=== PATIENT | female | born 1945 | race Asian ===

== ENCOUNTER 2017-11-17 11:20 | Inpatient (IN) | payer MEDICARE, BC ==
[~2017-11-17] VITALS: Ht 152.4 cm; Wt 45.4 kg
[2017-11-17] MEDS ORDERED: NORCO 5-325 TA1 EACH ORAL (11:44)
[2017-11-17 11:46] VITALS: BP 120/49
[2017-11-17] MEDS ORDERED: Morphine Sulfate 4mg/ml Inj IVP ONE (12:30)
[2017-11-17 12:37] LABS: ANION GAP 11 mmol/L (5-15); BLOOD UREA NITROGEN 17 mg/dL (7-18); CALCIUM 9.4 MG/DL (8.5-10.1); CARBON DIOXIDE 26 MMOL/L (21-32); CHLORIDE 106 MMOL/L (98-107); CREATININE 0.8 MG/DL (0.55-1.30); POTASSIUM 3.9 MMOL/L (3.5-5.1); SODIUM 143 MMOL/L (136-145)
[2017-11-17 12:39] LABS: HEMATOCRIT 42.4 % (37.0-47.0); HEMOGLOBIN 13.8 G/DL (12.0-16.0); MEAN CORPUSCULAR VOLUME 95 FL (80-99); PLATELET COUNT 189 K/UL (150-450); RED BLOOD COUNT 4.48 M/UL (4.20-5.40); RED CELL DISTRIBUTION WIDTH 12.3 % (11.6-14.8); WHITE BLOOD COUNT 17.2 K/UL (4.8-10.8)
[2017-11-17 12:49] LABS: ALANINE AMINOTRANSFERASE 397 U/L (12-78); ALBUMIN 3.4 G/DL (3.4-5.0); ALBUMIN/GLOBULIN RATIO 0.9 (1.0-2.7); ALKALINE PHOSPHATASE 223 U/L (46-116); ASPARTATE AMINO TRANSFERASE 610 U/L (15-37); BILIRUBIN,TOTAL 2.7 MG/DL (0.2-1.0)
[2017-11-17 12:50] LABS: BILIRUBIN,DIRECT 1.7 MG/DL (0.0-0.3)
[2017-11-17 13:11] VITALS: BP 112/42
--- NOTE | 2017-11-17 13:33 | Emergency Room Report ---
History of Present Illness General Chief Complaint: Abdominal Pain Source: Patient Present Illness HPI Patient presents with complaints of severe epigastric abdominal pain Some radiation towards the back patient had a cholecystectomy over 6 years ago Since then she has had repeat episodes of abdominal pain requiring ERCP This pain started 2 days ago increased nausea vomiting Denies any diarrhea 8/10 pain sharp Denies any fall or trauma Denies any fevers Allergies: Coded Allergies: No Known Allergies (Verified Allergy, Mild, 02/27/08) Patient History Past Medical History: see triage record Pertinent Family History: none Reviewed Nursing Documentation: PMH: Agreed, PSxH: Agreed Nursing Documentation-PMH Past Medical History: No History, Except For Review of Systems All Other Systems: negative except mentioned in HPI Physical Exam Vital Signs Date Time Temp Pulse Resp B/P (MAP) Pulse Ox O2 Delivery O2 Flow Rate FiO2 11/17/17 11:36 97.9 63 24 147/81 96 Room Air 11/17/17 11:46 2.0 Sp02 EP Interpretation: reviewed, normal General Appearance: mild distress - patient appears uncomfortable Head: normocephalic, atraumatic Eyes: bilateral eye PERRL, bilateral eye EOMI ENT: hearing grossly normal, normal pharynx, TMs + canals normal, uvula midline Neck: full range of motion, supple, no meningismus, no bony tend Respiratory: lungs clear, normal breath sounds, no rhonchi, no respiratory distress, no retraction, no accessory muscle use Cardiovascular #1: normal peripheral pulses, regular rate, rhythm, no edema, no gallop, no JVD, no murmur Gastrointestinal: normal bowel sounds, soft, no mass, no organomegaly, non- distended, no guarding, no hernia, no pulsatile mass, no rebound, tenderness - epigastric region Genitourinary: no CVA tenderness Musculoskeletal: normal inspection Neurologic: oriented x3, responsive, adoption worker III-XII nml as tested, motor strength/ tone normal, sensory intact Psychiatric: mood/affect normal Skin: normal color, no rash, warm/dry, palpation normal Lymphatic: normal inspection, no adenopathy Medical Decision Making Diagnostic Impression: Primary Impression: Abdominal pain Additional Impression: Hyperbilirubinemia ER Course With the history exam and presentation, multiple differentials considered, including but not limited to appendicitis, gastritis, cholecystitis, diverticulitis Patient's blood work reveals elevated total bilirubin elevated liver function test patient again appears to have likely obstructive pathology Further hydration and pain medicine as provided Patient's physician/GI specialist is aware and patient admitted for further care Labs Test 11/17/17 12:15 White Blood Count 17.2 K/UL (4.8-10.8) Red Blood Count 4.48 M/UL (4.20-5.40) Hemoglobin 13.8 G/DL (12.0-16.0) Hematocrit 42.4 % (37.0-47.0) Mean Corpuscular Volume 95 FL (80-99) Mean Corpuscular Hemoglobin 30.8 PG (27.0-31.0) Mean Corpuscular Hemoglobin Concent 32.5 G/DL (32.0-36.0) Red Cell Distribution Width 12.3 % (11.6-14.8) Platelet Count 189 K/UL (150-450) Mean Platelet Volume 9.5 FL (6.5-10.1) Neutrophils (%) (Auto) % (45.0-75.0) Lymphocytes (%) (Auto) % (20.0-45.0) Monocytes (%) (Auto) % (1.0-10.0) Eosinophils (%) (Auto) % (0.0-3.0) Basophils (%) (Auto) % (0.0-2.0) Differential Total Cells Counted 100 Neutrophils % (Manual) 93 % (45-75) Lymphocytes % (Manual) 4 % (20-45) Monocytes % (Manual) 2 % (1-10) Eosinophils % (Manual) 0 % (0-3) Basophils % (Manual) 0 % (0-2) Band Neutrophils 1 % (0-8) Platelet Estimate Adequate Platelet Morphology Normal Red Blood Cell Morphology Normal Sodium Level 143 MMOL/L (136-145) Potassium Level 3.9 MMOL/L (3.5-5.1) Chloride Level 106 MMOL/L (98-107) Carbon Dioxide Level 26 MMOL/L (21-32) Anion Gap 11 mmol/L (5-15) Blood Urea Nitrogen 17 mg/dL (7-18) Creatinine 0.8 MG/DL (0.55-1.30) Estimat Glomerular Filtration Rate mL/min (>60) Glucose Level 131 MG/DL (74-106) Calcium Level 9.4 MG/DL (8.5-10.1) Total Bilirubin 2.7 MG/DL (0.2-1.0) Direct Bilirubin 1.7 MG/DL (0.0-0.3) Aspartate Amino Transf (AST/SGOT) 610 U/L (15-37) Alanine Aminotransferase (ALT/SGPT) 397 U/L (12-78) Alkaline Phosphatase 223 U/L (46-116) Total Protein 7.4 G/DL (6.4-8.2) Albumin 3.4 G/DL (3.4-5.0) Globulin 4.0 g/dL Albumin/Globulin Ratio 0.9 (1.0-2.7) Lipase 81 U/L (73-393) Rhythm Strip Diag. Results EP Interpretation: yes Rate: 77 Rhythm: NSR, no PVC's, no ectopy CT/MRI/US Diagnostic Results CT/MRI/US Diagnostic Results : Impression abd mri:IMPRESSION: Choledocholithiasis with innumerable stones within the CBD and a moderate intrahepatic and CBD dilatation up to 16 mm. Status post cholecystectomy. Parapelvic renal cysts Breathing motion artifacts. Last Vital Signs Date Time Temp Pulse Resp B/P (MAP) Pulse Ox O2 Delivery O2 Flow Rate FiO2 11/17/17 13:11 97.8 58 12 112/42 98 Nasal Cannula 2.0 Status: improved Disposition: ADMITTED INPATIENT Condition: Serious Referrals: SHAWN JORDAN (PCP) LIZETH JIMENEZ D.O. Nov 17, 2017 13:33
[2017-11-17] MEDS ORDERED: Morphine Sulfate 2mg/ml Inj IVP PRN (14:00)
[2017-11-17] MEDS ORDERED: Miralax 17gm pkt ORAL PRN (14:00)
[2017-11-17] MEDS ORDERED: Mylanta II UD 30ml ORAL PRN (14:00)
[2017-11-17] MEDS ORDERED: Nitroglycerin Subl 0.4mg tab SL PRN (14:00)
--- NOTE | 2017-11-17 15:07 | GI Initial Consult Note ---
Eusebia Jasso NRizwanPRizwan 11/17/17 1507: History of Present Illness General Date patient seen: Nov 17, 2017 Time patient seen: 14:54 Reason for Hospitalization: Abdominal Pain Referring physician: TATYANA PERES Reason for Consultation: ABDOMINAL PAIN Present Illness HPI Patient presents with complaints of severe epigastric abdominal pain Some radiation towards the back patient had a cholecystectomy over 6 years ago Since then she has had repeat episodes of abdominal pain requiring ERCP This pain started 2 days ago increased nausea vomiting Denies any diarrhea 8/10 pain sharp Denies any fall or trauma Denies any fevers GI consulted for abdominal pain. Pt known to Dr. Jordan with history of biliary obstruction/cholestatic disease requiring ECRP x4 back in 2012. She presents today with severe abdominal pain with occasional radiation to the back. Labs reviewed shows leukocytosis and abnormal LFTs. Pt scheduled for MRCP, pending admission to the floor. Unknown history of endoscopy / colonoscopies. Home Meds Reported Medications Hydrocodone Bit/Acetaminophen 5-325* (NORCO 5-325*) 1 Each Tablet, 1 TAB ORAL Q6H Y for For Pain, #10 TAB 0 Refills 11/17/17 Med list reviewed/reconciled: Yes Allergies: Coded Allergies: No Known Allergies (Verified Allergy, Mild, 02/27/08) Patient History PMH Narrative Past Medical History: see triage record Pertinent Family History: none Reviewed Nursing Documentation: PMH: Agreed, PSxH: Agreed Nursing Documentation-PMH Past Medical History: cholestatic disease, s/p ERCP x4 in 2012. Social History: Denies: smoking, alcohol use, drug use, other Review of Systems All Other Systems: negative except mentioned in HPI Physical Exam Vital Signs Date Time Temp Pulse Resp B/P (MAP) Pulse Ox O2 Delivery O2 Flow Rate FiO2 11/17/17 11:36 97.9 63 24 147/81 96 Room Air 11/17/17 11:46 2.0 Sp02 EP Interpretation: reviewed, normal Labs Laboratory Tests Test 11/17/17 12:15 White Blood Count 17.2 K/UL (4.8-10.8) H Red Blood Count 4.48 M/UL (4.20-5.40) Hemoglobin 13.8 G/DL (12.0-16.0) Hematocrit 42.4 % (37.0-47.0) Mean Corpuscular Volume 95 FL (80-99) Mean Corpuscular Hemoglobin 30.8 PG (27.0-31.0) Mean Corpuscular Hemoglobin Concent 32.5 G/DL (32.0-36.0) Red Cell Distribution Width 12.3 % (11.6-14.8) Platelet Count 189 K/UL (150-450) Mean Platelet Volume 9.5 FL (6.5-10.1) Neutrophils (%) (Auto) % (45.0-75.0) Lymphocytes (%) (Auto) % (20.0-45.0) Monocytes (%) (Auto) % (1.0-10.0) Eosinophils (%) (Auto) % (0.0-3.0) Basophils (%) (Auto) % (0.0-2.0) Differential Total Cells Counted 100 Neutrophils % (Manual) 93 % (45-75) H Lymphocytes % (Manual) 4 % (20-45) L Monocytes % (Manual) 2 % (1-10) Eosinophils % (Manual) 0 % (0-3) Basophils % (Manual) 0 % (0-2) Band Neutrophils 1 % (0-8) Platelet Estimate Adequate Platelet Morphology Normal Red Blood Cell Morphology Normal Sodium Level 143 MMOL/L (136-145) Potassium Level 3.9 MMOL/L (3.5-5.1) Chloride Level 106 MMOL/L (98-107) Carbon Dioxide Level 26 MMOL/L (21-32) Anion Gap 11 mmol/L (5-15) Blood Urea Nitrogen 17 mg/dL (7-18) Creatinine 0.8 MG/DL (0.55-1.30) Estimat Glomerular Filtration Rate mL/min (>60) Glucose Level 131 MG/DL (74-106) H Calcium Level 9.4 MG/DL (8.5-10.1) Total Bilirubin 2.7 MG/DL (0.2-1.0) H Direct Bilirubin 1.7 MG/DL (0.0-0.3) H Aspartate Amino Transf (AST/SGOT) 610 U/L (15-37) H Alanine Aminotransferase (ALT/SGPT) 397 U/L (12-78) H Alkaline Phosphatase 223 U/L (46-116) H Total Protein 7.4 G/DL (6.4-8.2) Albumin 3.4 G/DL (3.4-5.0) Globulin 4.0 g/dL Albumin/Globulin Ratio 0.9 (1.0-2.7) L Lipase 81 U/L (73-393) General Appearance: well appearing, no apparent distress, alert Head: normocephalic EENT: PERRL/EOMI, normal ENT inspection Neck: supple Respiratory: normal breath sounds, no respiratory distress Cardiovascular: normal rate Gastrointestinal: normal inspection, non tender, soft, normal bowel sounds, non -distended Rectal: deferred Genitourinary: no CVA tenderness Musculoskeletal: normal inspection, back normal Neurologic: normal inspection, alert, oriented x3, responsive Psychiatric: normal inspection, judgement/insight normal, memory normal Skin: normal inspection, normal color, no rash, warm/dry, palpation normal, well hydrated Lymphatic: normal inspection, no adenopathy Current Medications Current Medications Medications (Trade) Dose Ordered Sig/Gordon Route PRN Reason Start Time Stop Time Status Last Admin Dose Admin Acetaminophen (Tylenol) 650 mg Q4H PRN ORAL fever 11/17/17 14:00 12/17/17 13:59 Al Hydroxide/Mg Hydroxide (Mylanta II) 30 ml Q6H PRN ORAL dyspepsia 11/17/17 14:00 12/17/17 13:59 Ceftriaxone Sodium 1 gm/ Dextrose 55 ml @ 110 mls/hr Q24H IVPB 11/17/17 14:45 11/24/17 14:44 UNV Dextrose (Dextrose 50%) STAT PRN IV Hypoglycemia 11/17/17 14:00 12/17/17 13:59 Dextrose/Sodium Chloride 1,000 ml @ 75 mls/hr [id number] IV 11/17/17 15:00 12/17/17 14:59 Diphenhydramine HCl (Benadryl) 25 mg Q6H PRN ORAL Itching/Pruritis 11/17/17 14:00 12/17/17 13:59 Heparin Sodium (Porcine) (Heparin 5000 units/ml) 5,000 units EVERY 12 HOURS SUBQ 11/17/17 21:00 12/17/17 20:59 Metronidazole 100 ml @ 100 mls/hr Q8HR IVPB 11/17/17 22:00 11/24/17 21:59 UNV Morphine Sulfate (Morphine Sulfate) 2 mg EVERY 4 HOURS PRN IVP severe Pain (Pain Scale 7-10) 11/17/17 14:00 11/24/17 13:59 Nitroglycerin (Ntg) 0.4 mg Q5M X 3 DOSES PRN SL Prn Chest Pain 11/17/17 14:00 12/17/17 13:59 Ondansetron HCl (Zofran) 4 mg Q6H PRN IVP Nausea & Vomiting 11/17/17 14:00 12/17/17 13:59 Pantoprazole (Protonix) 40 mg DAILY IVP 11/18/17 09:00 12/18/17 08:59 Polyethylene Glycol (Miralax) 17 gm HSPRN PRN ORAL Constipation 11/17/17 14:00 12/17/17 13:59 Temazepam (Restoril) 15 mg HSPRN PRN ORAL Insomnia 11/17/17 14:00 11/24/17 13:59 GI: Plan Problems: (1) Biliary obstruction (2) Abdominal pain (3) Hyperbilirubinemia Plan elevated LFTS >> suggestive of biliary obstruction vs cholestatic disease MRCP today. ERCP scheduled for Monday11/20/16. - maintain NPO + IVFs - add ceftriaxone + flagyl pain mgmt ppi fu labs, LFTs Discussed with Dr. Jordan. Thank you for this patient referral, we will follow. SHAWN JORDAN 11/20/17 0636: History of Present Illness General Reason for Hospitalization: Abdominal Pain Present Illness Home Meds Reported Medications Hydrocodone Bit/Acetaminophen 5-325* (NORCO 5-325*) 1 Each Tablet, 1 TAB ORAL Q6H Y for For Pain, #10 TAB 0 Refills 11/17/17 Allergies: Coded Allergies: No Known Allergies (Verified Allergy, Mild, 02/27/08) GI: Plan Plan The patient was seen and examined at bedside and all new and available data was reviewed in the patients chart. I agree with the above findings, impression and plan. (Patient seen earlier today. Signature stamp does not reflect patient encounter time.). - MD Louisa Campuzano,[facility] N.P. Nov 17, 2017 15:07 SHAWN JORDAN Nov 20, 2017 06:36
[2017-11-17 15:26] VITALS: BP 140/45
--- NOTE | 2017-11-17 15:48 | Diagnostic Imaging Report ---
Indication: Epigastric abdominal pain. Technique: MRI of the abdomen was performed in a 1.5 Yen magnet. Pulse sequences obtained include coronal and axial T2 single shot fast spin echo breathhold and respiratory gated coronal T2 3-D M.R.C.P.; this data set was displayed in different projections or MIPs. In addition, multiple coronal oblique thin T2 weighted, fat saturated SE sequences obtained through the CBD. Comparison: None Findings: The biliary ducts are moderately dilated. There are multiple low signal intensity foci within a dilated CBD consistent with choledocholithiasis. The CBD measures about 16 mm. There is abrupt transition at the head of the pancreas. The main pancreatic duct is not dilated. The gallbladder is absent. There is breathing motion artifact. Multiple small parapelvic cysts are present. There is no ascites. IMPRESSION: Choledocholithiasis with innumerable stones within the CBD and a moderate intrahepatic and CBD dilatation up to 16 mm. Status post cholecystectomy. Parapelvic renal cysts Breathing motion artifacts.
[2017-11-17] MEDS: D5 1/2NS 1,000 ML IV SCH (15:53)
[2017-11-17] MEDS: cefTRIAXone 1 GM in NS 55 ML IVPB SCH (17:06)
--- NOTE | 2017-11-17 17:21 | Consultation ---
History of Present Illness General Date patient seen: Nov 17, 2017 Time patient seen: 17:18 Chief Complaint: Abdominal Pain Referring physician: TATYANA PERES Reason for Consultation: ABDOMINAL PAIN Present Illness HPI 72 y/o F with hx ofcholescystectomy (~>6yrs ago), cholestasis disease s/p ERCP x2 2012 presents to ED on 11/17 with 2 days onset of severe epigastric abd pain, nausea and vomiting. Denied diarrhea, fall/trauma, fevers Allergies: Coded Allergies: No Known Allergies (Verified Allergy, Mild, 02/27/08) Medication History Scheduled PRN Hydrocodone Bit/Acetaminophen 5-325* ([place] 5-325*), 1 TAB ORAL Q6H PRN for For Pain, (Reported) Patient History Healthcare decision maker Resuscitation status Advanced Directive on File Patient History Narrative Pmhx: as above Sh: Denies: smoking, alcohol use, drug use, other Fhx: non contributory Review of Systems All Other Systems: negative except mentioned in HPI Physical Exam Physical Exam Narrative General Appearance: well appearing, no apparent distress, alert Head: normocephalic EENT: PERRL/EOMI, normal ENT inspection Neck: supple Respiratory: normal breath sounds, no respiratory distress Cardiovascular: normal rate Gastrointestinal: normal inspection, non tender, soft, normal bowel sounds, non -distended Rectal: deferred Genitourinary: no CVA tenderness Musculoskeletal: normal inspection, back normal Neurologic: normal inspection, alert, oriented x3, responsive Psychiatric: normal inspection, judgement/insight normal, memory normal Skin: normal inspection, normal color, no rash, warm/dry, palpation normal, well hydrated Lymphatic: normal inspection, no adenopathy Last 24 Hour Vital Signs Date Time Temp Pulse Resp B/P (MAP) Pulse Ox O2 Delivery O2 Flow Rate FiO2 11/17/17 15:26 97.5 56 14 140/45 97 Nasal Cannula 2.0 11/17/17 14:59 97.8 58 12 112/42 98 Nasal Cannula 2.0 11/17/17 13:11 97.8 58 12 112/42 98 Nasal Cannula 2.0 11/17/17 12:52 97.8 11/17/17 11:46 97.9 54 14 120/49 97 Nasal Cannula 2.0 11/17/17 11:36 97.9 63 24 147/81 96 Room Air Laboratory Tests Test 11/17/17 12:15 White Blood Count 17.2 K/UL (4.8-10.8) H Red Blood Count 4.48 M/UL (4.20-5.40) Hemoglobin 13.8 G/DL (12.0-16.0) Hematocrit 42.4 % (37.0-47.0) Mean Corpuscular Volume 95 FL (80-99) Mean Corpuscular Hemoglobin 30.8 PG (27.0-31.0) Mean Corpuscular Hemoglobin Concent 32.5 G/DL (32.0-36.0) Red Cell Distribution Width 12.3 % (11.6-14.8) Platelet Count 189 K/UL (150-450) Mean Platelet Volume 9.5 FL (6.5-10.1) Neutrophils (%) (Auto) % (45.0-75.0) Lymphocytes (%) (Auto) % (20.0-45.0) Monocytes (%) (Auto) % (1.0-10.0) Eosinophils (%) (Auto) % (0.0-3.0) Basophils (%) (Auto) % (0.0-2.0) Differential Total Cells Counted 100 Neutrophils % (Manual) 93 % (45-75) H Lymphocytes % (Manual) 4 % (20-45) L Monocytes % (Manual) 2 % (1-10) Eosinophils % (Manual) 0 % (0-3) Basophils % (Manual) 0 % (0-2) Band Neutrophils 1 % (0-8) Platelet Estimate Adequate Platelet Morphology Normal Red Blood Cell Morphology Normal Sodium Level 143 MMOL/L (136-145) Potassium Level 3.9 MMOL/L (3.5-5.1) Chloride Level 106 MMOL/L (98-107) Carbon Dioxide Level 26 MMOL/L (21-32) Anion Gap 11 mmol/L (5-15) Blood Urea Nitrogen 17 mg/dL (7-18) Creatinine 0.8 MG/DL (0.55-1.30) Estimat Glomerular Filtration Rate mL/min (>60) Glucose Level 131 MG/DL (74-106) H Calcium Level 9.4 MG/DL (8.5-10.1) Total Bilirubin 2.7 MG/DL (0.2-1.0) H Direct Bilirubin 1.7 MG/DL (0.0-0.3) H Aspartate Amino Transf (AST/SGOT) 610 U/L (15-37) H Alanine Aminotransferase (ALT/SGPT) 397 U/L (12-78) H Alkaline Phosphatase 223 U/L (46-116) H Total Protein 7.4 G/DL (6.4-8.2) Albumin 3.4 G/DL (3.4-5.0) Globulin 4.0 g/dL Albumin/Globulin Ratio 0.9 (1.0-2.7) L Lipase 81 U/L (73-393) Height (Feet): 5 Weight (Pounds): 100 Medications Current Medications Medications (Trade) Dose Ordered Sig/Gordon Route PRN Reason Start Time Stop Time Status Last Admin Dose Admin Acetaminophen (Tylenol) 650 mg Q4H PRN ORAL fever 11/17/17 14:00 12/17/17 13:59 Al Hydroxide/Mg Hydroxide (Mylanta II) 30 ml Q6H PRN ORAL dyspepsia 11/17/17 14:00 12/17/17 13:59 Ceftriaxone Sodium 1 gm/ Sodium Chloride 55 ml @ 110 mls/hr Q24H IVPB 11/17/17 16:30 11/24/17 16:29 11/17/17 17:06 Dextrose (Dextrose 50%) STAT PRN IV Hypoglycemia 11/17/17 14:00 12/17/17 13:59 Dextrose/Sodium Chloride 1,000 ml @ 75 mls/hr [id number] IV 11/17/17 15:00 12/17/17 14:59 11/17/17 15:53 Diphenhydramine HCl (Benadryl) 25 mg Q6H PRN ORAL Itching/Pruritis 11/17/17 14:00 12/17/17 13:59 Heparin Sodium (Porcine) (Heparin 5000 units/ml) 5,000 units EVERY 12 HOURS SUBQ 11/17/17 21:00 12/17/17 20:59 Metronidazole 100 ml @ 100 mls/hr Q8HR IVPB 11/17/17 22:00 11/24/17 21:59 Morphine Sulfate (Morphine Sulfate) 2 mg EVERY 4 HOURS PRN IVP severe Pain (Pain Scale 7-10) 11/17/17 14:00 11/24/17 13:59 11/17/17 15:16 Nitroglycerin (Ntg) 0.4 mg Q5M X 3 DOSES PRN SL Prn Chest Pain 11/17/17 14:00 12/17/17 13:59 Ondansetron HCl (Zofran) 4 mg Q6H PRN IVP Nausea & Vomiting 11/17/17 14:00 12/17/17 13:59 11/17/17 15:16 Pantoprazole (Protonix) 40 mg DAILY IVP 11/18/17 09:00 12/18/17 08:59 Polyethylene Glycol (Miralax) 17 gm HSPRN PRN ORAL Constipation 11/17/17 14:00 12/17/17 13:59 Temazepam (Restoril) 15 mg HSPRN PRN ORAL Insomnia 11/17/17 14:00 11/24/17 13:59 Assessment/Plan Assessment/Plan Abx: Ceftriaxone 11/17- Flagyl 11/17- Assessment: Abd pain 2ry to choledocholithiasis and possible cholangitis -MRI abd: Choledocholithiasis with innumerable stones within the CBD and a moderate intrahepatic and CBD dilatation up to 16 mm. Status post cholecystectomy.Parapelvic renal cysts. Breathing motion artifacts. Leukocytosis -afebrile Elevated LFTs, and Bili- 2ry to above Cholestasis disease -s/p ERCP x4 2012 S/p cholecystectomy (~>6yrs ago) Plan: -Continue Ceftriaxone and Flagyl #1 in the setting of possible cholangitis -f/u cx -Monitor CBC/BMP, temperatures -plan for ERCP 11/20 Thank you for this consultation. Will continue to follow along with you. Discussed with Iliana West M.D. Nov 17, 2017 17:21
[2017-11-17 18:50] VITALS: BP 126/60
[2017-11-17] MEDS: Morphine Sulfate 4mg/ml Inj IVP PRN (18:54)
[2017-11-17 19:53] VITALS: BP 126/41
[2017-11-17] MEDS: Heparin 5000 units/ml inj SUBQ SCH (21:19)
[2017-11-17 23:49] VITALS: BP 130/55
[2017-11-18 03:48] VITALS: BP 126/58
[2017-11-18] MEDS: D5 1/2NS 1,000 ML IV SCH ×2 (04:20→18:12)
[2017-11-18 08:25] VITALS: BP 110/54
[2017-11-18 09:01] LABS: BASOPHILS % (AUTO) 0.4 % (0.0-2.0); EOSINOPHILS % (AUTO) 0.3 % (0.0-3.0); HEMATOCRIT 33.9 % (37.0-47.0); HEMOGLOBIN 11.2 G/DL (12.0-16.0); LYMPHOCYTES % (AUTO) 11.8 % (20.0-45.0); MEAN CORPUSCULAR VOLUME 94 FL (80-99); MONOCYTES % (AUTO) 5.5 % (1.0-10.0); PLATELET COUNT 140 K/UL (150-450); RED BLOOD COUNT 3.59 M/UL (4.20-5.40); RED CELL DISTRIBUTION WIDTH 12.3 % (11.6-14.8); WHITE BLOOD COUNT 9.3 K/UL (4.8-10.8)
--- NOTE | 2017-11-18 09:04 | General Progress Note ---
Assessment/Plan Problem List: (1) Choledocholithiasis ICD Codes: K80.50 - Calculus of bile duct without cholangitis or cholecystitis without obstruction SNOMED: 411427638 (2) cholahgitis (3) Abdominal pain ICD Codes: R10.9 - Unspecified abdominal pain SNOMED: 42057243 (4) Hyperbilirubinemia ICD Codes: E80.6 - Other disorders of bilirubin metabolism SNOMED: 37154976 Assessment/Plan clears abx plan ERCP on Monday pain control IVF Subjective ROS Limited/Unobtainable: Yes Allergies: Coded Allergies: No Known Allergies (Verified Allergy, Mild, 02/27/08) Subjective abd pain is better Objective Last 24 Hour Vital Signs Date Time Temp Pulse Resp B/P (MAP) Pulse Ox O2 Delivery O2 Flow Rate FiO2 11/18/17 08:25 98.1 63 18 110/54 95 11/18/17 03:48 98.2 58 20 126/58 94 Nasal Cannula 11/17/17 23:49 97.5 80 20 130/55 100 Room Air 11/17/17 19:53 98.1 57 20 126/41 93 Nasal Cannula 11/17/17 18:50 59 16 126/60 11/17/17 15:26 97.5 56 14 140/45 97 Nasal Cannula 2.0 11/17/17 14:59 97.8 58 12 112/42 98 Nasal Cannula 2.0 11/17/17 13:11 97.8 58 12 112/42 98 Nasal Cannula 2.0 11/17/17 12:52 97.8 11/17/17 11:46 97.9 54 14 120/49 97 Nasal Cannula 2.0 11/17/17 11:36 97.9 63 24 147/81 96 Room Air Intake and Output 11/17/17 11/18/17 19:00 07:00 Intake Total 205 ml 831.25 ml Balance 205 ml 831.25 ml Intake Oral 0 ml IV Total 205 ml 831.25 ml Laboratory Tests 11/17/17 12:15: White Blood Count 17.2H, Red Blood Count 4.48, Hemoglobin 13.8, Hematocrit 42.4 , Mean Corpuscular Volume 95, Mean Corpuscular Hemoglobin 30.8, Mean Corpuscular Hemoglobin Concent 32.5, Red Cell Distribution Width 12.3, Platelet Count 189, Mean Platelet Volume 9.5, Neutrophils (%) (Auto) , Lymphocytes (%) ( Auto) , Monocytes (%) (Auto) , Eosinophils (%) (Auto) , Basophils (%) (Auto) , Differential Total Cells Counted 100, Neutrophils % (Manual) 93H, Lymphocytes % (Manual) 4L, Monocytes % (Manual) 2, Eosinophils % (Manual) 0, Basophils % ( Manual) 0, Band Neutrophils 1, Platelet Estimate Adequate, Platelet Morphology Normal, Red Blood Cell Morphology Normal, Sodium Level 143, Potassium Level 3.9 , Chloride Level 106, Carbon Dioxide Level 26, Anion Gap 11, Blood Urea Nitrogen 17, Creatinine 0.8, Estimat Glomerular Filtration Rate , Glucose Level 131H, Calcium Level 9.4, Total Bilirubin 2.7H, Direct Bilirubin 1.7H, Aspartate Amino Transf (AST/SGOT) 610H, Alanine Aminotransferase (ALT/SGPT) 397H, Alkaline Phosphatase 223H, Total Protein 7.4, Albumin 3.4, Globulin 4.0, Albumin /Globulin Ratio 0.9L, Lipase 81 11/18/17 07:39: White Blood Count [Pending], Red Blood Count [Pending], Hemoglobin [Pending], Hematocrit [Pending], Mean Corpuscular Volume [Pending], Mean Corpuscular Hemoglobin [Pending], Mean Corpuscular Hemoglobin Concent [Pending], Red Cell Distribution Width [Pending], Platelet Count [Pending], Mean Platelet Volume [ Pending], Neutrophils (%) (Auto) [Pending], Lymphocytes (%) (Auto) [Pending], Monocytes (%) (Auto) [Pending], Eosinophils (%) (Auto) [Pending], Basophils (%) (Auto) [Pending], Sodium Level [Pending], Potassium Level [Pending], Chloride Level [Pending], Carbon Dioxide Level [Pending], Blood Urea Nitrogen [Pending], Creatinine [Pending], Estimat Glomerular Filtration Rate [Pending], Glucose Level [Pending], Calcium Level [Pending], Total Bilirubin [Pending], Aspartate Amino Transf (AST/SGOT) [Pending], Alanine Aminotransferase (ALT/SGPT) [Pending] , Alkaline Phosphatase [Pending], Total Protein [Pending], Albumin [Pending], Globulin [Pending], Lipase [Pending], Prothrombin Time [Pending], Prothromb Time International Ratio [Pending], Activated Partial Thromboplast Time [Pending ], Amylase Level [Pending] Height (Feet): 5 Height (Inches): 0.00 Weight (Pounds): 100 General Appearance: alert EENT: normal ENT inspection Neck: supple Cardiovascular: normal rate Respiratory/Chest: lungs clear Abdomen: soft, hypoactive bowel sounds, tender Extremities: non-tender SHAWN JORDAN Nov 18, 2017 09:04
[2017-11-18] MEDS: Pantoprazole Inj IVP SCH (09:09)
[2017-11-18] MEDS: Heparin 5000 units/ml inj SUBQ SCH ×2 (09:12→20:51)
[2017-11-18 09:51] LABS: AMYLASE 33 U/L (25-115)
[2017-11-18 09:54] LABS: ALANINE AMINOTRANSFERASE 287 U/L (12-78); ALBUMIN 2.5 G/DL (3.4-5.0); ALBUMIN/GLOBULIN RATIO 0.7 (1.0-2.7); ALKALINE PHOSPHATASE 177 U/L (46-116); ANION GAP 6 mmol/L (5-15); ASPARTATE AMINO TRANSFERASE 279 U/L (15-37); BILIRUBIN,TOTAL 0.7 MG/DL (0.2-1.0); BLOOD UREA NITROGEN 18 mg/dL (7-18); CALCIUM 8.4 MG/DL (8.5-10.1); CARBON DIOXIDE 28 MMOL/L (21-32); CHLORIDE 110 MMOL/L (98-107); CREATININE 0.7 MG/DL (0.55-1.30); POTASSIUM 3.3 MMOL/L (3.5-5.1); SODIUM 144 MMOL/L (136-145)
--- NOTE | 2017-11-18 11:09 | Infectious Diseases Prog Note ---
Assessment/Plan Assessment/Plan Abx: Ceftriaxone 2/2- Flagyl 2/- Assessment: Abd pain 2ry to choledocholithiasis and possible cholangitis -MRI abd: Choledocholithiasis with innumerable stones within the CBD and a moderate intrahepatic and CBD dilatation up to 16 mm. Status post cholecystectomy.Parapelvic renal cysts. Breathing motion artifacts. Leukocytosis, resolved -afebrile Elevated LFTs, and Bili- 2ry to above; improving Cholestasis disease -s/p ERCP x4 2012 S/p cholecystectomy (~>6yrs ago) Plan: -Continue Ceftriaxone and Flagyl #2 in the setting of possible cholangitis -If T>101, please obtain 2 sets of Bcx -Monitor CBC/BMP, temperatures -plan for ERCP 11/20 Thank you for this consultation. Will continue to follow along with you. Discussed with RN. Subjective Allergies: Coded Allergies: No Known Allergies (Verified Allergy, Mild, 02/27/08) Subjective afebrile leukocytosis resolved LFTs improving Objective Vital Signs Last 24 Hour Vital Signs Date Time Temp Pulse Resp B/P (MAP) Pulse Ox O2 Delivery O2 Flow Rate FiO2 11/18/17 08:25 98.1 63 18 110/54 95 11/18/17 03:48 98.2 58 20 126/58 94 Nasal Cannula 11/17/17 23:49 97.5 80 20 130/55 100 Room Air 11/17/17 19:53 98.1 57 20 126/41 93 Nasal Cannula 11/17/17 18:50 59 16 126/60 11/17/17 15:26 97.5 56 14 140/45 97 Nasal Cannula 2.0 11/17/17 14:59 97.8 58 12 112/42 98 Nasal Cannula 2.0 11/17/17 13:11 97.8 58 12 112/42 98 Nasal Cannula 2.0 11/17/17 12:52 97.8 11/17/17 11:46 97.9 54 14 120/49 97 Nasal Cannula 2.0 11/17/17 11:36 97.9 63 24 147/81 96 Room Air Height (Feet): 5 Height (Inches): 0.00 Weight (Pounds): 100 Objective General Appearance: well appearing, no apparent distress, alert Head: normocephalic EENT: PERRL/EOMI, normal ENT inspection Neck: supple Respiratory: normal breath sounds, no respiratory distress Cardiovascular: normal rate Gastrointestinal: normal inspection,RUQ TTP Genitourinary: no CVA tenderness Musculoskeletal: normal inspection, back normal Skin: normal inspection, normal color, no rash, warm/dry, palpation normal, well hydrated Laboratory Tests Test 11/17/17 12:15 11/18/17 07:39 White Blood Count 17.2 K/UL (4.8-10.8) H 9.3 K/UL (4.8-10.8) Red Blood Count 4.48 M/UL (4.20-5.40) 3.59 M/UL (4.20-5.40) L Hemoglobin 13.8 G/DL (12.0-16.0) 11.2 G/DL (12.0-16.0) L Hematocrit 42.4 % (37.0-47.0) 33.9 % (37.0-47.0) L Mean Corpuscular Volume 95 FL (80-99) 94 FL (80-99) Mean Corpuscular Hemoglobin 30.8 PG (27.0-31.0) 31.3 PG (27.0-31.0) H Mean Corpuscular Hemoglobin Concent 32.5 G/DL (32.0-36.0) 33.1 G/DL (32.0-36.0) Red Cell Distribution Width 12.3 % (11.6-14.8) 12.3 % (11.6-14.8) Platelet Count 189 K/UL (150-450) 140 K/UL (150-450) L Mean Platelet Volume 9.5 FL (6.5-10.1) 8.7 FL (6.5-10.1) Neutrophils (%) (Auto) % (45.0-75.0) 82.0 % (45.0-75.0) H Lymphocytes (%) (Auto) % (20.0-45.0) 11.8 % (20.0-45.0) L Monocytes (%) (Auto) % (1.0-10.0) 5.5 % (1.0-10.0) Eosinophils (%) (Auto) % (0.0-3.0) 0.3 % (0.0-3.0) Basophils (%) (Auto) % (0.0-2.0) 0.4 % (0.0-2.0) Differential Total Cells Counted 100 Neutrophils % (Manual) 93 % (45-75) H Lymphocytes % (Manual) 4 % (20-45) L Monocytes % (Manual) 2 % (1-10) Eosinophils % (Manual) 0 % (0-3) Basophils % (Manual) 0 % (0-2) Band Neutrophils 1 % (0-8) Platelet Estimate Adequate Platelet Morphology Normal Red Blood Cell Morphology Normal Sodium Level 143 MMOL/L (136-145) 144 MMOL/L (136-145) Potassium Level 3.9 MMOL/L (3.5-5.1) 3.3 MMOL/L (3.5-5.1) L Chloride Level 106 MMOL/L (98-107) 110 MMOL/L (98-107) H Carbon Dioxide Level 26 MMOL/L (21-32) 28 MMOL/L (21-32) Anion Gap 11 mmol/L (5-15) 6 mmol/L (5-15) Blood Urea Nitrogen 17 mg/dL (7-18) 18 mg/dL (7-18) Creatinine 0.8 MG/DL (0.55-1.30) 0.7 MG/DL (0.55-1.30) Estimat Glomerular Filtration Rate mL/min (>60) mL/min (>60) Glucose Level 131 MG/DL (74-106) H 102 MG/DL (74-106) Calcium Level 9.4 MG/DL (8.5-10.1) 8.4 MG/DL (8.5-10.1) L Total Bilirubin 2.7 MG/DL (0.2-1.0) H 0.7 MG/DL (0.2-1.0) Direct Bilirubin 1.7 MG/DL (0.0-0.3) H Aspartate Amino Transf (AST/SGOT) 610 U/L (15-37) H 279 U/L (15-37) H Alanine Aminotransferase (ALT/SGPT) 397 U/L (12-78) H 287 U/L (12-78) H Alkaline Phosphatase 223 U/L (46-116) H 177 U/L (46-116) H Total Protein 7.4 G/DL (6.4-8.2) 5.9 G/DL (6.4-8.2) L Albumin 3.4 G/DL (3.4-5.0) 2.5 G/DL (3.4-5.0) L Globulin 4.0 g/dL 3.4 g/dL Albumin/Globulin Ratio 0.9 (1.0-2.7) L 0.7 (1.0-2.7) L Lipase 81 U/L (73-393) 102 U/L (73-393) Prothrombin Time 10.2 SEC (9.30-11.50) Prothromb Time International Ratio 1.0 (0.9-1.1) Activated Partial Thromboplast Time 28 SEC (23-33) Amylase Level 33 U/L (25-115) Current Medications Medications (Trade) Dose Ordered Sig/Gordon Route PRN Reason Start Time Stop Time Status Last Admin Dose Admin Acetaminophen (Tylenol) 650 mg Q4H PRN ORAL fever 11/17/17 14:00 12/17/17 13:59 Al Hydroxide/Mg Hydroxide (Mylanta II) 30 ml Q6H PRN ORAL dyspepsia 11/17/17 14:00 12/17/17 13:59 Ceftriaxone Sodium 1 gm/ Sodium Chloride 55 ml @ 110 mls/hr Q24H IVPB 11/17/17 16:30 11/24/17 16:29 11/17/17 17:06 Dextrose (Dextrose 50%) STAT PRN IV Hypoglycemia 11/17/17 14:00 12/17/17 13:59 Dextrose/Sodium Chloride 1,000 ml @ 75 mls/hr [id number] IV 11/17/17 15:00 12/17/17 14:59 11/17/17 15:53 Diphenhydramine HCl (Benadryl) 25 mg Q6H PRN ORAL Itching/Pruritis 11/17/17 14:00 12/17/17 13:59 Heparin Sodium (Porcine) (Heparin 5000 units/ml) 5,000 units EVERY 12 HOURS SUBQ 11/17/17 21:00 12/17/17 20:59 11/18/17 09:12 Metronidazole 100 ml @ 100 mls/hr Q8HR IVPB 11/17/17 22:00 11/24/17 21:59 11/18/17 06:08 Morphine Sulfate (Morphine Sulfate) 4 mg Q4H PRN IVP Severe Pain (Pain Scale 7-10) 11/17/17 19:00 11/24/17 18:59 11/17/17 18:54 Nitroglycerin (Ntg) 0.4 mg Q5M X 3 DOSES PRN SL Prn Chest Pain 11/17/17 14:00 12/17/17 13:59 Ondansetron HCl (Zofran) 4 mg Q4H PRN IVP Nausea & Vomiting 11/17/17 19:15 12/17/17 19:14 11/17/17 18:54 Pantoprazole (Protonix) 40 mg DAILY IVP 11/18/17 09:00 12/18/17 08:59 11/18/17 09:09 Polyethylene Glycol (Miralax) 17 gm HSPRN PRN ORAL Constipation 11/17/17 14:00 12/17/17 13:59 Temazepam (Restoril) 15 mg HSPRN PRN ORAL Insomnia 11/17/17 14:00 11/24/17 13:59 Iliana Mijares M.D. Nov 18, 2017 11:09
[2017-11-18 11:58] VITALS: BP 112/51
[2017-11-18 16:00] VITALS: BP 117/59
[2017-11-18] MEDS: cefTRIAXone 1 GM in NS 55 ML IVPB SCH (16:47)
[2017-11-18 20:06] VITALS: BP 135/67
[2017-11-18] MEDS: Morphine Sulfate 4mg/ml Inj IVP PRN (21:51)
[2017-11-18 23:49] VITALS: BP 148/60
[2017-11-19 04:39] VITALS: BP 155/62
[2017-11-19] MEDS: D5 1/2NS 1,000 ML IV SCH ×3 (05:09→16:48)
[2017-11-19] MEDS: Morphine Sulfate 4mg/ml Inj IVP PRN (05:11)
[2017-11-19 08:00] VITALS: BP 146/64
--- NOTE | 2017-11-19 08:05 | General Progress Note ---
Assessment/Plan Problem List: (1) Choledocholithiasis ICD Codes: K80.50 - Calculus of bile duct without cholangitis or cholecystitis without obstruction SNOMED: 265235520 (2) cholahgitis (3) Abdominal pain ICD Codes: R10.9 - Unspecified abdominal pain SNOMED: 98073491 (4) Hyperbilirubinemia ICD Codes: E80.6 - Other disorders of bilirubin metabolism SNOMED: 06999568 Assessment/Plan npo abx plan ERCP on Monday pain control IVF Subjective ROS Limited/Unobtainable: Yes Allergies: Coded Allergies: No Known Allergies (Verified Allergy, Mild, 02/27/08) Subjective abd pain nausea Objective Last 24 Hour Vital Signs Date Time Temp Pulse Resp B/P (MAP) Pulse Ox O2 Delivery O2 Flow Rate FiO2 11/19/17 04:39 98.2 68 20 155/62 93 Room Air 11/18/17 23:49 98.1 53 20 148/60 97 Room Air 11/18/17 20:06 97.5 65 20 135/67 95 Room Air 11/18/17 17:25 Room Air 11/18/17 16:00 97.7 61 18 117/59 97 11/18/17 11:58 98.1 57 18 112/51 95 11/18/17 08:25 98.1 63 18 110/54 95 Intake and Output 11/18/17 11/19/17 19:00 07:00 Intake Total 185 ml 950 ml Balance 185 ml 950 ml IV Total 185 ml 950 ml Laboratory Tests 11/19/17 06:00: White Blood Count [Pending], Red Blood Count [Pending], Hemoglobin [Pending], Hematocrit [Pending], Mean Corpuscular Volume [Pending], Mean Corpuscular Hemoglobin [Pending], Mean Corpuscular Hemoglobin Concent [Pending], Red Cell Distribution Width [Pending], Platelet Count [Pending], Mean Platelet Volume [ Pending], Neutrophils (%) (Auto) [Pending], Lymphocytes (%) (Auto) [Pending], Monocytes (%) (Auto) [Pending], Eosinophils (%) (Auto) [Pending], Basophils (%) (Auto) [Pending], Sodium Level [Pending], Potassium Level [Pending], Chloride Level [Pending], Carbon Dioxide Level [Pending], Blood Urea Nitrogen [Pending], Creatinine [Pending], Estimat Glomerular Filtration Rate [Pending], Glucose Level [Pending], Calcium Level [Pending], Total Bilirubin [Pending], Aspartate Amino Transf (AST/SGOT) [Pending], Alanine Aminotransferase (ALT/SGPT) [Pending] , Alkaline Phosphatase [Pending], Total Protein [Pending], Albumin [Pending], Globulin [Pending] Height (Feet): 5 Height (Inches): 0.00 Weight (Pounds): 100 General Appearance: alert EENT: normal ENT inspection Neck: supple Cardiovascular: normal rate Respiratory/Chest: lungs clear Abdomen: normal bowel sounds, non tender, soft Extremities: non-tender SHAWN JORDAN Nov 19, 2017 08:05
[2017-11-19 08:12] LABS: BASOPHILS % (AUTO) 0.9 % (0.0-2.0); EOSINOPHILS % (AUTO) 0.4 % (0.0-3.0); HEMATOCRIT 35.3 % (37.0-47.0); HEMOGLOBIN 11.8 G/DL (12.0-16.0); LYMPHOCYTES % (AUTO) 18.5 % (20.0-45.0); MEAN CORPUSCULAR VOLUME 95 FL (80-99); MONOCYTES % (AUTO) 8.5 % (1.0-10.0); NEUTROPHILS % (AUTO) 71.7 % (45.0-75.0); PLATELET COUNT 141 K/UL (150-450); RED BLOOD COUNT 3.73 M/UL (4.20-5.40); RED CELL DISTRIBUTION WIDTH 12.7 % (11.6-14.8); WHITE BLOOD COUNT 4.4 K/UL (4.8-10.8)
[2017-11-19] MEDS: Pantoprazole Inj IVP SCH (08:15)
[2017-11-19] MEDS: HYDROmorphone 1mg/ml Carpuject IVP PRN ×2 (08:15→20:30)
[2017-11-19 08:32] LABS: ALANINE AMINOTRANSFERASE 216 U/L (12-78); ALBUMIN 2.5 G/DL (3.4-5.0); ALBUMIN/GLOBULIN RATIO 0.8 (1.0-2.7); ALKALINE PHOSPHATASE 197 U/L (46-116); ANION GAP 4 mmol/L (5-15); ASPARTATE AMINO TRANSFERASE 180 U/L (15-37); BILIRUBIN,TOTAL 0.5 MG/DL (0.2-1.0); BLOOD UREA NITROGEN 11 mg/dL (7-18); CALCIUM 7.9 MG/DL (8.5-10.1); CARBON DIOXIDE 27 MMOL/L (21-32); CHLORIDE 109 MMOL/L (98-107); CREATININE 0.6 MG/DL (0.55-1.30); POTASSIUM 3.7 MMOL/L (3.5-5.1); SODIUM 140 MMOL/L (136-145)
[2017-11-19] MEDS: Heparin 5000 units/ml inj SUBQ SCH ×2 (09:36→21:00)
[2017-11-19 12:00] VITALS: BP 129/49
[2017-11-19] MEDS ORDERED: D5 1/2NS 1000ml IV ONE (15:48)
[2017-11-19 16:00] VITALS: BP 135/56
[2017-11-19] MEDS: cefTRIAXone 1 GM in NS 55 ML IVPB SCH (16:25)
[2017-11-19 20:00] VITALS: BP 133/46
[2017-11-20] VITALS (11 sets, daily range): BP systolic 131–169; BP diastolic 58–70
[2017-11-20] MEDS: D5 1/2NS 1,000 ML IV SCH ×2 (03:17→13:53)
[2017-11-20] MEDS: HYDROmorphone 1mg/ml Carpuject IVP PRN ×5 (03:21→22:43)
--- NOTE | 2017-11-20 06:32 | Anethesia Preoperative Eval ---
Anesthesia Pre-op PMH/ROS General Date of Evaluation: Nov 20, 2017 Time of Evaluation: 06:29 Anesthesiologist: wagner ASA Score: ASA 3 Mallampati Score Class I : Soft palate, uvula, fauces, pillars visible Class II: Soft palate, uvula, fauces visible Class III: Soft palate, base of uvula visible Class IV: Only hard plate visible Mallampati Classification: Class II Surgeon: damari Diagnosis: biliary obstruction Surgical Procedure: ercp Anesthesia History: none Social History: smoking - nonsmoker Family History: no anesthesia problems Allergies: Coded Allergies: No Known Allergies (Verified Allergy, Mild, 02/27/08) Medications: see eMAR Past Medical History Gastrointestinal/Genitourinary: Reports: other - severe abdominal pain, biliary obstruction, choledocholithiasis, cholangitis, hyperbilirubinemia Anesthesia Pre-op Phys. Exam Physician Exam Last Vital Signs Date Time Temp Pulse Resp B/P (MAP) Pulse Ox O2 Delivery O2 Flow Rate FiO2 11/20/17 04:00 Room Air 11/20/17 04:00 97.3 59 18 152/68 93 11/18/17 17:25 Neurologic: CN 2-12 intact Cardiovascular: RRR Respiratory: CTA Gastrointestinal: S/NT/ND Airway Exam Mallampati Score: Class II MO: limited Neck: short TMD: 2fb ROM: limited Anesthesia Pre-op A/P Labs Labs Test 11/18/17 07:39 11/19/17 06:00 11/20/17 05:45 White Blood Count 9.3 K/UL (4.8-10.8) 4.4 K/UL (4.8-10.8) 5.1 K/UL (4.8-10.8) Red Blood Count 3.59 M/UL (4.20-5.40) 3.73 M/UL (4.20-5.40) 3.84 M/UL (4.20-5.40) Hemoglobin 11.2 G/DL (12.0-16.0) 11.8 G/DL (12.0-16.0) 12.3 G/DL (12.0-16.0) Hematocrit 33.9 % (37.0-47.0) 35.3 % (37.0-47.0) 35.6 % (37.0-47.0) Mean Corpuscular Volume 94 FL (80-99) 95 FL (80-99) 93 FL (80-99) Mean Corpuscular Hemoglobin 31.3 PG (27.0-31.0) 31.6 PG (27.0-31.0) 32.0 PG (27.0-31.0) Mean Corpuscular Hemoglobin Concent 33.1 G/DL (32.0-36.0) 33.4 G/DL (32.0-36.0) 34.6 G/DL (32.0-36.0) Red Cell Distribution Width 12.3 % (11.6-14.8) 12.7 % (11.6-14.8) 11.8 % (11.6-14.8) Platelet Count 140 K/UL (150-450) 141 K/UL (150-450) 159 K/UL (150-450) Mean Platelet Volume 8.7 FL (6.5-10.1) 9.2 FL (6.5-10.1) 9.0 FL (6.5-10.1) Neutrophils (%) (Auto) 82.0 % (45.0-75.0) 71.7 % (45.0-75.0) 78.3 % (45.0-75.0) Lymphocytes (%) (Auto) 11.8 % (20.0-45.0) 18.5 % (20.0-45.0) 15.3 % (20.0-45.0) Monocytes (%) (Auto) 5.5 % (1.0-10.0) 8.5 % (1.0-10.0) 5.7 % (1.0-10.0) Eosinophils (%) (Auto) 0.3 % (0.0-3.0) 0.4 % (0.0-3.0) 0.0 % (0.0-3.0) Basophils (%) (Auto) 0.4 % (0.0-2.0) 0.9 % (0.0-2.0) 0.6 % (0.0-2.0) Prothrombin Time 10.2 SEC (9.30-11.50) 10.2 SEC (9.30-11.50) Prothromb Time International Ratio 1.0 (0.9-1.1) 1.0 (0.9-1.1) Activated Partial Thromboplast Time 28 SEC (23-33) 27 SEC (23-33) Sodium Level 144 MMOL/L (136-145) 140 MMOL/L (136-145) 137 MMOL/L (136-145) Potassium Level 3.3 MMOL/L (3.5-5.1) 3.7 MMOL/L (3.5-5.1) 3.0 MMOL/L (3.5-5.1) Chloride Level 110 MMOL/L (98-107) 109 MMOL/L (98-107) 104 MMOL/L (98-107) Carbon Dioxide Level 28 MMOL/L (21-32) 27 MMOL/L (21-32) 29 MMOL/L (21-32) Anion Gap 6 mmol/L (5-15) 4 mmol/L (5-15) 4 mmol/L (5-15) Blood Urea Nitrogen 18 mg/dL (7-18) 11 mg/dL (7-18) 8 mg/dL (7-18) Creatinine 0.7 MG/DL (0.55-1.30) 0.6 MG/DL (0.55-1.30) 0.6 MG/DL (0.55-1.30) Estimat Glomerular Filtration Rate mL/min (>60) mL/min (>60) mL/min (>60) Glucose Level 102 MG/DL (74-106) 99 MG/DL (74-106) 143 MG/DL (74-106) Calcium Level 8.4 MG/DL (8.5-10.1) 7.9 MG/DL (8.5-10.1) 8.1 MG/DL (8.5-10.1) Total Bilirubin 0.7 MG/DL (0.2-1.0) 0.5 MG/DL (0.2-1.0) 0.4 MG/DL (0.2-1.0) Aspartate Amino Transf (AST/SGOT) 279 U/L (15-37) 180 U/L (15-37) 100 U/L (15-37) Alanine Aminotransferase (ALT/SGPT) 287 U/L (12-78) 216 U/L (12-78) 162 U/L (12-78) Alkaline Phosphatase 177 U/L (46-116) 197 U/L (46-116) 202 U/L (46-116) Total Protein 5.9 G/DL (6.4-8.2) 5.8 G/DL (6.4-8.2) 5.8 G/DL (6.4-8.2) Albumin 2.5 G/DL (3.4-5.0) 2.5 G/DL (3.4-5.0) 2.4 G/DL (3.4-5.0) Globulin 3.4 g/dL 3.3 g/dL 3.4 g/dL Albumin/Globulin Ratio 0.7 (1.0-2.7) 0.8 (1.0-2.7) 0.7 (1.0-2.7) Amylase Level 33 U/L (25-115) Lipase 102 U/L (73-393) Risk Assessment & Plan Assessment: [email or web address] Plan: mac Status Change Before Surgery: No Pre-Antibiotics Drug: EMA Pinto Nov 20, 2017 06:32
[2017-11-20 08:00] LABS: ALANINE AMINOTRANSFERASE 162 U/L (12-78); ALBUMIN 2.4 G/DL (3.4-5.0); ALBUMIN/GLOBULIN RATIO 0.7 (1.0-2.7); ALKALINE PHOSPHATASE 202 U/L (46-116); ANION GAP 4 mmol/L (5-15); ASPARTATE AMINO TRANSFERASE 100 U/L (15-37); BILIRUBIN,TOTAL 0.4 MG/DL (0.2-1.0); BLOOD UREA NITROGEN 8 mg/dL (7-18); CALCIUM 8.1 MG/DL (8.5-10.1); CARBON DIOXIDE 29 MMOL/L (21-32); CHLORIDE 104 MMOL/L (98-107); CREATININE 0.6 MG/DL (0.55-1.30); SODIUM 137 MMOL/L (136-145)
[2017-11-20 08:04] LABS: BASOPHILS % (AUTO) 0.6 % (0.0-2.0); HEMATOCRIT 35.6 % (37.0-47.0); HEMOGLOBIN 12.3 G/DL (12.0-16.0); LYMPHOCYTES % (AUTO) 15.3 % (20.0-45.0); MEAN CORPUSCULAR VOLUME 93 FL (80-99); MONOCYTES % (AUTO) 5.7 % (1.0-10.0); NEUTROPHILS % (AUTO) 78.3 % (45.0-75.0); PLATELET COUNT 159 K/UL (150-450); RED BLOOD COUNT 3.84 M/UL (4.20-5.40); RED CELL DISTRIBUTION WIDTH 11.8 % (11.6-14.8); WHITE BLOOD COUNT 5.1 K/UL (4.8-10.8)
[2017-11-20] MEDS ORDERED: Propofol 200mg/20ml IV ONE (09:00)
[2017-11-20] MEDS ORDERED: fentaNYL 100 mcg/2 mL IV ONE (09:00)
[2017-11-20] MEDS ORDERED: Midazolam 2mg/2ml Inj ONE (09:00)
[2017-11-20] MEDS ORDERED: Lidocaine 1% MPF 10mg/ml 5ml ONE (09:00)
[2017-11-20] MEDS ORDERED: Tubing IV Extension IV ONE (09:02)
[2017-11-20] MEDS ORDERED: Iothalamate Meglumine 60% 30ML INJ ONE ×2 (09:15→09:35)
--- NOTE | 2017-11-20 09:17 | Pre-Procedure Note/Attestation ---
Pre-Procedure Note/Attestation Complete Prior to Procedure Planned Procedure: not applicable Procedure Narrative: ercp Indications for Procedure Pre-Operative Diagnosis: cholangitis Attestation I attest that I discussed the nature of the procedure; its benefits; risks and complications; and alternatives (and the risks and benefits of such alternatives ), prior to the procedure, with the patient (or the patient's legal commercial pest control representative). I attest that, if there was a reasonable possibility of needing a blood transfusion, the patient (or the patient's legal commercial pest control representative) was given the [facility] standardized written summary, pursuant to the [place] Blood Safety Act ([place] Health and Safety Code # 1645, as amended). I attest that I re-evaluated the patient just prior to the surgery and that there has been no change in the patient's H&P, except as documented below: SHAWN JORDAN Nov 20, 2017 09:17
[2017-11-20] MEDS: Indomethacin 50mg Supp RECTAL ONE ×2 (09:32→09:53)
[2017-11-20] MEDS: Pantoprazole Inj IVP SCH (09:53)
[2017-11-20] MEDS: Heparin 5000 units/ml inj SUBQ SCH ×2 (09:53→21:00)
--- NOTE | 2017-11-20 10:22 | Endoscopy Procedure Note ---
Endoscopy Procedure Note Indication for Procedure: choledocholithiasis Procedures Performed: ERCP Operative Findings/Diagnosis: same Specimen: none Pt Tolerated Procedure Well: Yes Estimated Blood Loss: none Anesthesiologist: tanya Anesthesia: MAC Implant(s) used?: No 50 yrs or older w/o bx or poly: Not Applicable 10yrs. F/U not recommended: Not Applicable SAHWN JORDAN Nov 20, 2017 10:22
[2017-11-20] MEDS ORDERED: DiphenhydrAMINE 50mg/ml Inj IVP PRN (12:30)
[2017-11-20] MEDS ORDERED: Atropine Inj 1mg/10ml Syr IV PRN (12:30)
[2017-11-20] MEDS ORDERED: fentaNYL 100 mcg/2 mL IV PRN (12:30)
[2017-11-20] MEDS ORDERED: Midazolam 2mg/2ml Inj IVP PRN (12:30)
--- NOTE | 2017-11-20 12:41 | Infectious Diseases Prog Note ---
Assessment/Plan Assessment/Plan Abx: Ceftriaxone /- Flagyl 2/- Assessment: Abd pain 2ry to choledocholithiasis and possible cholangitis -MRI abd: Choledocholithiasis with innumerable stones within the CBD and a moderate intrahepatic and CBD dilatation up to 16 mm. Status post cholecystectomy.Parapelvic renal cysts. Breathing motion artifacts. Leukocytosis, resolved -afebrile Elevated LFTs, and Bili- 2ry to above; improving Cholestasis disease -s/p ERCP x4 2012 S/p cholecystectomy (~>6yrs ago) Plan: -Continue Ceftriaxone and Flagyl #4/7 in the setting of possible cholangitis -If T>101, please obtain 2 sets of Bcx -Monitor CBC/BMP, temperatures -plan for ERCP 11/20 Thank you for this consultation. Will continue to follow along with you. Discussed with RN. Subjective Allergies: Coded Allergies: No Known Allergies (Verified Allergy, Mild, 02/27/08) Subjective afebrile leukocytosis resolved LFTs improving Objective Vital Signs Last 24 Hour Vital Signs Date Time Temp Pulse Resp B/P (MAP) Pulse Ox O2 Delivery O2 Flow Rate FiO2 11/20/17 12:04 97.0 52 18 169/70 97 Nasal Cannula 2.0 11/20/17 10:44 97.0 54 15 166/66 99 Nasal Cannula 3.0 11/20/17 10:40 53 14 163/65 99 Nasal Cannula 3.0 11/20/17 10:30 50 12 167/67 99 Nasal Cannula 3.0 11/20/17 10:25 49 12 159/65 98 Nasal Cannula 3.0 11/20/17 10:21 97.0 52 13 164/66 99 Nasal Cannula 3.0 11/20/17 08:14 97.5 64 18 147/60 95 Nasal Cannula 2.0 11/20/17 04:00 Room Air 11/20/17 04:00 97.3 59 18 152/68 93 11/19/17 20:00 Room Air 11/19/17 20:00 98.9 54 16 133/46 96 11/19/17 16:00 97.5 57 20 135/56 93 Height (Feet): 5 Height (Inches): 0.00 Weight (Pounds): 100 Objective General Appearance: well appearing, no apparent distress, alert Head: normocephalic EENT: PERRL/EOMI, normal ENT inspection Neck: supple Respiratory: normal breath sounds, no respiratory distress Cardiovascular: normal rate Gastrointestinal: normal inspection,RUQ TTP Genitourinary: no CVA tenderness Musculoskeletal: normal inspection, back normal Skin: normal inspection, normal color, no rash, warm/dry, palpation normal, well hydrated Laboratory Tests Test 11/20/17 05:45 White Blood Count 5.1 K/UL (4.8-10.8) Red Blood Count 3.84 M/UL (4.20-5.40) L Hemoglobin 12.3 G/DL (12.0-16.0) Hematocrit 35.6 % (37.0-47.0) L Mean Corpuscular Volume 93 FL (80-99) Mean Corpuscular Hemoglobin 32.0 PG (27.0-31.0) H Mean Corpuscular Hemoglobin Concent 34.6 G/DL (32.0-36.0) Red Cell Distribution Width 11.8 % (11.6-14.8) Platelet Count 159 K/UL (150-450) Mean Platelet Volume 9.0 FL (6.5-10.1) Neutrophils (%) (Auto) 78.3 % (45.0-75.0) H Lymphocytes (%) (Auto) 15.3 % (20.0-45.0) L Monocytes (%) (Auto) 5.7 % (1.0-10.0) Eosinophils (%) (Auto) 0.0 % (0.0-3.0) Basophils (%) (Auto) 0.6 % (0.0-2.0) Prothrombin Time 10.2 SEC (9.30-11.50) Prothromb Time International Ratio 1.0 (0.9-1.1) Activated Partial Thromboplast Time 27 SEC (23-33) Sodium Level 137 MMOL/L (136-145) Potassium Level 3.0 MMOL/L (3.5-5.1) L Chloride Level 104 MMOL/L (98-107) Carbon Dioxide Level 29 MMOL/L (21-32) Anion Gap 4 mmol/L (5-15) L Blood Urea Nitrogen 8 mg/dL (7-18) Creatinine 0.6 MG/DL (0.55-1.30) Estimat Glomerular Filtration Rate mL/min (>60) Glucose Level 143 MG/DL (74-106) H Calcium Level 8.1 MG/DL (8.5-10.1) L Total Bilirubin 0.4 MG/DL (0.2-1.0) Aspartate Amino Transf (AST/SGOT) 100 U/L (15-37) H Alanine Aminotransferase (ALT/SGPT) 162 U/L (12-78) H Alkaline Phosphatase 202 U/L (46-116) H Total Protein 5.8 G/DL (6.4-8.2) L Albumin 2.4 G/DL (3.4-5.0) L Globulin 3.4 g/dL Albumin/Globulin Ratio 0.7 (1.0-2.7) L Current Medications Medications (Trade) Dose Ordered Sig/Gordon Route PRN Reason Start Time Stop Time Status Last Admin Dose Admin Acetaminophen (Tylenol) 650 mg Q4H PRN ORAL fever 11/17/17 14:00 12/17/17 13:59 Al Hydroxide/Mg Hydroxide (Mylanta II) 30 ml Q6H PRN ORAL dyspepsia 11/17/17 14:00 12/17/17 13:59 Al Hydroxide/Mg Hydroxide (Mylanta) 15 ml Q1H PRN ORAL gi upset 11/20/17 12:30 UNV Atropine Sulfate (Atropine) 0.5 mg Q5M PRN IV bpm less than 45 11/20/17 12:30 UNV Ceftriaxone Sodium 1 gm/ Sodium Chloride 55 ml @ 110 mls/hr Q24H IVPB 11/17/17 16:30 11/24/17 16:29 11/19/17 16:25 Dextrose (Dextrose 50%) STAT PRN IV Hypoglycemia 11/17/17 14:00 12/17/17 13:59 Dextrose/Sodium Chloride 1,000 ml @ 100 mls/hr Q10H IV 11/19/17 08:30 12/19/17 08:29 11/20/17 03:17 Diphenhydramine HCl (Benadryl) 25 mg Q15M PRN IVP Itching 11/20/17 12:30 UNV Diphenhydramine HCl (Benadryl) 25 mg Q6H PRN ORAL Itching/Pruritis 11/17/17 14:00 12/17/17 13:59 Fentanyl Citrate (Sublimaze 100 mcg/2 mL) 25 mcg Q10M PRN IV Moderate Pain (Pain Scale 4-6) 11/20/17 12:30 UNV Heparin Sodium (Porcine) (Heparin 5000 units/ml) 5,000 units EVERY 12 HOURS SUBQ 11/17/17 21:00 12/17/17 20:59 11/18/17 09:12 Hydralazine HCl (Apresoline) 5 mg Q30M PRN IV SBP>160 OR___/DBP>90 OR___ 11/20/17 12:30 UNV Hydromorphone HCl (Dilaudid) 1 mg Q4H PRN IVP For Pain 11/19/17 08:00 11/26/17 07:59 11/20/17 11:54 Metronidazole 100 ml @ 100 mls/hr Q8HR IVPB 11/17/17 22:00 11/24/17 21:59 11/20/17 05:38 Midazolam HCl (Versed 2mg/2ml vial) 1 mg Q15M PRN IVP For Anxiety 11/20/17 12:30 UNV Nitroglycerin (Ntg) 0.4 mg Q5M X 3 DOSES PRN SL Prn Chest Pain 11/17/17 14:00 12/17/17 13:59 Ondansetron HCl (Zofran) 4 mg Q1H PRN IVP Nausea & Vomiting 11/20/17 12:30 UNV Ondansetron HCl (Zofran) 4 mg Q4H PRN IVP Nausea & Vomiting 11/17/17 19:15 12/17/17 19:14 11/20/17 11:53 Pantoprazole (Protonix) 40 mg DAILY IVP 11/18/17 09:00 12/18/17 08:59 11/19/17 08:15 Polyethylene Glycol (Miralax) 17 gm HSPRN PRN ORAL Constipation 11/17/17 14:00 12/17/17 13:59 Sodium Chloride 1,000 ml @ 10 mls/hr Q24H IVLG 11/20/17 12:19 11/20/17 14:18 UNV Temazepam (Restoril) 15 mg HSPRN PRN ORAL Insomnia 11/17/17 14:00 11/24/17 13:59 Iliana Mijares M.D. Nov 20, 2017 12:41
--- NOTE | 2017-11-20 15:11 | Diagnostic Imaging Report ---
Indication: Choledocholithiasis, intraprocedural imaging Technique: Intraoperative images Comparison: MRCP dated 11/17/2017 Findings: Intraoperative images demonstrate opacification of dilated bile ducts, subsequent deployment of balloon extraction catheter Impression: Intraoperative imaging, as described
[2017-11-20] MEDS: cefTRIAXone 1 GM in NS 55 ML IVPB SCH (16:18)
--- NOTE | 2017-11-20 17:30 | Procedure Note ---
DATE OF PROCEDURE: 11/20/2017 SURGEON: Sonny Sandy M.D. PROCEDURE: ERCP with sphincterotomy and stone removal. ANESTHESIA: Per Dr. Cruz. INSTRUMENT: Olympus adult ERCP scope. INDICATION: Choledocholithiasis. The procedure, risks, benefits, and possible consequences, including hemorrhage, aspiration, perforation and infection, and alternative treatments, were explained to the patient/legal guardian by Dr. Sonny Sandy and the patient/legal guardian understood and accepted these risks. DESCRIPTION OF PROCEDURE: After informed consent was obtained and the patient was adequately sedated, first we gave 100 mg of indomethacin suppository. Then, we also instructed the anesthesiologist to start wide open IV fluids. Then, the procedure was started. We passed the scope from the esophagus into the stomach and then subsequently into the second portion of duodenum. The patient had prior sphincterotomy. This was a difficult case in terms of positioning. As soon as we have a nice position to cannulate, the scope was turned back into the duodenum and into the stomach. I would say at least throughout this procedure, I had to go back in maybe 5 or 6 times from the stomach back into the duodenum to be able to do this procedure. Initial cholangiogram showed severely dilated common bile duct to about 15 mm. There were multiple filling defects in the distal common bile duct, most likely large stones. We realized the size of the stone and the size of the opening of the ampulla. We needed to do a little bit of extension of the sphincterotomy, which we did. After the extension of the sphincterotomy, there was a minimum bleeding, which stopped at the end of the procedure. We used a balloon to sweep the duct multiple times. Multiple stones, black colored stones were removed successfully. After all the stones were removed, we flushed the common bile duct with 30 mL of water and we swept it again to remove whatever debris that has stayed in the common bile duct. Then, we introduced the balloon back again and we swept the ducts and did a balloon cholangiogram, which showed no further filling defect in the common bile duct. The patient tolerated the procedure very well without any complication. SUMMARY OF FINDINGS: 1. Choledocholithiasis. 2. Status post ERCP, extension of the sphincterotomy, and balloon assisted stone extraction. RECOMMENDATION: The patient to be kept NPO until later today and start clear liquid diet if she is asymptomatic and pain free. We will continue on IV fluid hydration for at least 125 mL an hour for another liter or so and then we will cut it down or slow it down. Repeat labs for tomorrow. The patient most probably will benefit from Ursodiol as an outpatient to prevent recurrent stones. We will discuss with the family. Sonny Sandy M.D. DR: SERGO JOB#: [id number] CC:
--- NOTE | 2017-11-20 17:39 | Immediate Post-Op Evaluation ---
Immediate Post-Op Evalulation Immediate Post-Op Evalulation Procedure: ercp Date of Evaluation: Nov 20, 2017 Time of Evaluation: 10:33 IV Fluids: 550ml 0.9ns Blood Products: none Estimated Blood Loss: negligible Blood Pressure Systolic: 159 Blood Pressure Diastolic: 65 Pulse Rate: 54 Respiratory Rate: 18 O2 Sat by Pulse Oximetry: 99 Temperature (Fahrenheit): 97.0 Pain Score (1-10): 0 Nausea: No Vomiting: No Complications none Patient Status: awake, reacts, patent Hydration Status: adequate Drug: EMA Pinto Nov 20, 2017 17:39
--- NOTE | 2017-11-20 17:41 | 48 Hour Post Anesthesia Eval ---
Post Anesthesia Evaluation Procedure: ercp Date of Evaluation: Nov 20, 2017 Time of Evaluation: 10:35 Blood Pressure Systolic: 167 0: 67 Pulse Rate: 50 Respiratory Rate: 12 Temperature (Fahrenheit): 97.0 O2 Sat by Pulse Oximetry: 99 Airway: patent Nausea: No Vomiting: No Pain Intensity: 0 Hydration Status: adequate Cardiopulmonary Status: stable Mental Status/LOC: patient returned to baseline Post-Anesthesia Complications: none Follow-up care needed: N/A EMA MAHMOOD Nov 20, 2017 17:41
[2017-11-20] MEDS ORDERED: D5 1/2NS 1000ml IV ONE (19:03)
[2017-11-21] MEDS: D5 1/2NS 1,000 ML IV SCH ×2 (00:02→11:05)
[2017-11-21 04:00] VITALS: BP 146/67
[2017-11-21] MEDS: HYDROmorphone 1mg/ml Carpuject IVP PRN ×2 (06:35→11:04)
[2017-11-21 08:50] LABS: BASOPHILS % (AUTO) 0.7 % (0.0-2.0); EOSINOPHILS % (AUTO) 0.6 % (0.0-3.0); HEMATOCRIT 34.9 % (37.0-47.0); HEMOGLOBIN 11.9 G/DL (12.0-16.0); LYMPHOCYTES % (AUTO) 18.9 % (20.0-45.0); MEAN CORPUSCULAR VOLUME 93 FL (80-99); MONOCYTES % (AUTO) 6.9 % (1.0-10.0); NEUTROPHILS % (AUTO) 72.9 % (45.0-75.0); PLATELET COUNT 177 K/UL (150-450); RED BLOOD COUNT 3.77 M/UL (4.20-5.40); RED CELL DISTRIBUTION WIDTH 11.7 % (11.6-14.8); WHITE BLOOD COUNT 5.9 K/UL (4.8-10.8)
[2017-11-21 09:29] LABS: ANION GAP 5 mmol/L (5-15); CARBON DIOXIDE 30 MMOL/L (21-32); CHLORIDE 102 MMOL/L (98-107); POTASSIUM 2.9 MMOL/L (3.5-5.1); SODIUM 137 MMOL/L (136-145)
[2017-11-21] MEDS: Heparin 5000 units/ml inj SUBQ SCH ×2 (09:32→21:35)
[2017-11-21] MEDS: Pantoprazole Inj IVP SCH (09:32)
[2017-11-21 09:57] LABS: ALANINE AMINOTRANSFERASE 129 U/L (12-78); ALBUMIN 2.3 G/DL (3.4-5.0); ALBUMIN/GLOBULIN RATIO 0.7 (1.0-2.7); ALKALINE PHOSPHATASE 183 U/L (46-116); ASPARTATE AMINO TRANSFERASE 94 U/L (15-37); BILIRUBIN,TOTAL 0.5 MG/DL (0.2-1.0); BLOOD UREA NITROGEN 5 mg/dL (7-18); CALCIUM 7.9 MG/DL (8.5-10.1); CREATININE 0.6 MG/DL (0.55-1.30)
[2017-11-21 12:06] VITALS: BP 149/75
--- NOTE | 2017-11-21 13:31 | Infectious Diseases Prog Note ---
Assessment/Plan Assessment/Plan Abx: Ceftriaxone /- Flagyl 11/17- Assessment: Abd pain 2ry to choledocholithiasis and possible cholangitis -s/p ERCP 11/20 (Procedure findings report p) -MRI abd: Choledocholithiasis with innumerable stones within the CBD and a moderate intrahepatic and CBD dilatation up to 16 mm. Status post cholecystectomy.Parapelvic renal cysts. Breathing motion artifacts. Leukocytosis, resolved -afebrile Elevated LFTs, and Bili- 2ry to above; improving Cholestasis disease -s/p ERCP x4 2012 S/p cholecystectomy (~>6yrs ago) Plan: -Continue Ceftriaxone and Flagyl #5/7 in the setting of possible cholangitis; upon discharge can be transition to PO Cefdinir and Flagyl -If T>101, please obtain 2 sets of Bcx -Monitor CBC/BMP, temperatures Thank you for this consultation. Will continue to follow along with you. Discussed with RN. Subjective Allergies: Coded Allergies: No Known Allergies (Verified Allergy, Mild, 02/27/08) Subjective afebrile no leukocytosis resolved LFTs improving s/p ERCP yesterday Objective Vital Signs Last 24 Hour Vital Signs Date Time Temp Pulse Resp B/P (MAP) Pulse Ox O2 Delivery O2 Flow Rate FiO2 11/21/17 12:06 97.0 58 18 149/75 92 Room Air 11/21/17 04:00 97.9 65 19 146/67 96 Room Air 11/20/17 19:47 97.5 62 20 131/58 93 Room Air 11/20/17 17:41 50 12 99 11/20/17 17:39 54 18 99 11/20/17 16:14 97.6 54 20 152/66 97 Room Air Height (Feet): 5 Height (Inches): 0.00 Weight (Pounds): 100 Objective General Appearance: well appearing, no apparent distress, alert Head: normocephalic EENT: PERRL/EOMI, normal ENT inspection Neck: supple Respiratory: normal breath sounds, no respiratory distress Cardiovascular: normal rate Gastrointestinal: normal inspection,RUQ TTP Genitourinary: no CVA tenderness Musculoskeletal: normal inspection, back normal Skin: normal inspection, normal color, no rash, warm/dry, palpation normal, well hydrated Laboratory Tests Test 11/21/17 08:05 White Blood Count 5.9 K/UL (4.8-10.8) Red Blood Count 3.77 M/UL (4.20-5.40) L Hemoglobin 11.9 G/DL (12.0-16.0) L Hematocrit 34.9 % (37.0-47.0) L Mean Corpuscular Volume 93 FL (80-99) Mean Corpuscular Hemoglobin 31.7 PG (27.0-31.0) H Mean Corpuscular Hemoglobin Concent 34.2 G/DL (32.0-36.0) Red Cell Distribution Width 11.7 % (11.6-14.8) Platelet Count 177 K/UL (150-450) Mean Platelet Volume 8.4 FL (6.5-10.1) Neutrophils (%) (Auto) 72.9 % (45.0-75.0) Lymphocytes (%) (Auto) 18.9 % (20.0-45.0) L Monocytes (%) (Auto) 6.9 % (1.0-10.0) Eosinophils (%) (Auto) 0.6 % (0.0-3.0) Basophils (%) (Auto) 0.7 % (0.0-2.0) Sodium Level 137 MMOL/L (136-145) Potassium Level 2.9 MMOL/L (3.5-5.1) L Chloride Level 102 MMOL/L (98-107) Carbon Dioxide Level 30 MMOL/L (21-32) Anion Gap 5 mmol/L (5-15) Blood Urea Nitrogen 5 mg/dL (7-18) L Creatinine 0.6 MG/DL (0.55-1.30) Estimat Glomerular Filtration Rate mL/min (>60) Glucose Level 136 MG/DL (74-106) H Calcium Level 7.9 MG/DL (8.5-10.1) L Total Bilirubin 0.5 MG/DL (0.2-1.0) Aspartate Amino Transf (AST/SGOT) 94 U/L (15-37) H Alanine Aminotransferase (ALT/SGPT) 129 U/L (12-78) H Alkaline Phosphatase 183 U/L (46-116) H Total Protein 5.5 G/DL (6.4-8.2) L Albumin 2.3 G/DL (3.4-5.0) L Globulin 3.2 g/dL Albumin/Globulin Ratio 0.7 (1.0-2.7) L Current Medications Medications (Trade) Dose Ordered Sig/Gordon Route PRN Reason Start Time Stop Time Status Last Admin Dose Admin Acetaminophen (Tylenol) 650 mg Q4H PRN ORAL fever 11/17/17 14:00 12/17/17 13:59 Al Hydroxide/Mg Hydroxide (Mylanta II) 30 ml Q6H PRN ORAL dyspepsia 11/17/17 14:00 12/17/17 13:59 Ceftriaxone Sodium 1 gm/ Sodium Chloride 55 ml @ 110 mls/hr Q24H IVPB 11/17/17 16:30 11/24/17 16:29 11/20/17 16:18 Dextrose (Dextrose 50%) STAT PRN IV Hypoglycemia 11/17/17 14:00 12/17/17 13:59 Dextrose/Sodium Chloride 1,000 ml @ 100 mls/hr Q10H IV 11/19/17 08:30 12/19/17 08:29 11/21/17 11:05 Diphenhydramine HCl (Benadryl) 25 mg Q6H PRN ORAL Itching/Pruritis 11/17/17 14:00 12/17/17 13:59 Heparin Sodium (Porcine) (Heparin 5000 units/ml) 5,000 units EVERY 12 HOURS SUBQ 11/17/17 21:00 12/17/17 20:59 11/21/17 09:32 Hydromorphone HCl (Dilaudid) 1 mg Q4H PRN IVP For Pain 11/19/17 08:00 11/26/17 07:59 11/21/17 11:04 Metronidazole 100 ml @ 100 mls/hr Q8HR IVPB 11/17/17 22:00 11/24/17 21:59 11/21/17 05:15 Nitroglycerin (Ntg) 0.4 mg Q5M X 3 DOSES PRN SL Prn Chest Pain 11/17/17 14:00 12/17/17 13:59 Ondansetron HCl (Zofran) 4 mg Q4H PRN IVP Nausea & Vomiting 11/17/17 19:15 12/17/17 19:14 11/21/17 05:19 Pantoprazole (Protonix) 40 mg DAILY IVP 11/18/17 09:00 12/18/17 08:59 11/21/17 09:32 Polyethylene Glycol (Miralax) 17 gm HSPRN PRN ORAL Constipation 11/17/17 14:00 12/17/17 13:59 Temazepam (Restoril) 15 mg HSPRN PRN ORAL Insomnia 11/17/17 14:00 11/24/17 13:59 Iliana Mijares M.D. Nov 21, 2017 13:31
--- NOTE | 2017-11-21 15:23 | GI Progress Note ---
Assessment/Plan Problems: (1) Abdominal pain ICD Codes: R10.9 - Unspecified abdominal pain SNOMED: 29273420 (2) Hyperbilirubinemia ICD Codes: E80.6 - Other disorders of bilirubin metabolism SNOMED: 20927936 (3) Choledocholithiasis ICD Codes: K80.50 - Calculus of bile duct without cholangitis or cholecystitis without obstruction SNOMED: 901424201 (4) Biliary obstruction ICD Codes: K83.1 - Obstruction of bile duct SNOMED: 866515147 Status: unchanged Status Narrative Discussed with Dr. Sandy. Assessment/Plan 1. Choledocholithiasis. 2. Status post ERCP, extension of the sphincterotomy, and balloon assisted stone extraction. RECOMMENDATION: revert to full liquid diet, adv as tolerated add compazine for nausea IV to PO pain mgmt increased IVFs rate ordered Ursodiol, to be continued as outpatient fu labs, repeat lipase needs outpatient follow up with us in a month Subjective Subjective nauseated unable to hold PO Objective Last 24 Hour Vital Signs Date Time Temp Pulse Resp B/P (MAP) Pulse Ox O2 Delivery O2 Flow Rate FiO2 11/21/17 12:06 97.0 58 18 149/75 92 Room Air 11/21/17 04:00 97.9 65 19 146/67 96 Room Air 11/20/17 19:47 97.5 62 20 131/58 93 Room Air 11/20/17 17:41 50 12 99 11/20/17 17:39 54 18 99 11/20/17 16:14 97.6 54 20 152/66 97 Room Air Intake and Output 11/20/17 11/21/17 19:00 07:00 Intake Total 1755 ml 1150 ml Output Total 0 ml Balance 1755 ml 1150 ml Intake Oral 100 ml IV Total 1755 ml 1050 ml Output Estimated Blood Loss 0 ml # Voids 2 3 Laboratory Tests Test 11/21/17 08:05 White Blood Count 5.9 K/UL (4.8-10.8) Red Blood Count 3.77 M/UL (4.20-5.40) L Hemoglobin 11.9 G/DL (12.0-16.0) L Hematocrit 34.9 % (37.0-47.0) L Mean Corpuscular Volume 93 FL (80-99) Mean Corpuscular Hemoglobin 31.7 PG (27.0-31.0) H Mean Corpuscular Hemoglobin Concent 34.2 G/DL (32.0-36.0) Red Cell Distribution Width 11.7 % (11.6-14.8) Platelet Count 177 K/UL (150-450) Mean Platelet Volume 8.4 FL (6.5-10.1) Neutrophils (%) (Auto) 72.9 % (45.0-75.0) Lymphocytes (%) (Auto) 18.9 % (20.0-45.0) L Monocytes (%) (Auto) 6.9 % (1.0-10.0) Eosinophils (%) (Auto) 0.6 % (0.0-3.0) Basophils (%) (Auto) 0.7 % (0.0-2.0) Sodium Level 137 MMOL/L (136-145) Potassium Level 2.9 MMOL/L (3.5-5.1) L Chloride Level 102 MMOL/L (98-107) Carbon Dioxide Level 30 MMOL/L (21-32) Anion Gap 5 mmol/L (5-15) Blood Urea Nitrogen 5 mg/dL (7-18) L Creatinine 0.6 MG/DL (0.55-1.30) Estimat Glomerular Filtration Rate mL/min (>60) Glucose Level 136 MG/DL (74-106) H Calcium Level 7.9 MG/DL (8.5-10.1) L Total Bilirubin 0.5 MG/DL (0.2-1.0) Aspartate Amino Transf (AST/SGOT) 94 U/L (15-37) H Alanine Aminotransferase (ALT/SGPT) 129 U/L (12-78) H Alkaline Phosphatase 183 U/L (46-116) H Total Protein 5.5 G/DL (6.4-8.2) L Albumin 2.3 G/DL (3.4-5.0) L Globulin 3.2 g/dL Albumin/Globulin Ratio 0.7 (1.0-2.7) L Height (Feet): 5 Height (Inches): 0.00 Weight (Pounds): 100 General Appearance: no apparent distress, alert Cardiovascular: normal rate Respiratory/Chest: normal breath sounds, no respiratory distress Abdominal Exam: soft Eusebia Jasso N.PRizwan Nov 21, 2017 15:22
[2017-11-21] MEDS: D5 1/2NS w/KCl 20mEq 1,000 ML IV SCH (15:48)
[2017-11-21 16:00] VITALS: BP 144/60
[2017-11-21] MEDS: Norco 5mg/325mg tab ORAL PRN ×2 (16:23→22:52)
[2017-11-21] MEDS: cefTRIAXone 1 GM in NS 55 ML IVPB SCH (17:05)
[2017-11-21] MEDS: Ursodiol 300mg cap ORAL SCH (18:23)
[2017-11-21 20:00] VITALS: BP 130/73
[2017-11-22] VITALS: BP 142/69
[2017-11-22] MEDS: D5 1/2NS w/KCl 20mEq 1,000 ML IV SCH ×2 (00:28→06:42)
[2017-11-22 04:00] VITALS: BP 137/64
[2017-11-22 08:00] VITALS: BP 143/69
[2017-11-22] MEDS ORDERED: D5 1/2NS 1,000 ML IV SCH (08:30)
[2017-11-22] MEDS: Pantoprazole Inj IVP SCH (09:14)
[2017-11-22] MEDS: Ursodiol 300mg cap ORAL SCH (09:14)
[2017-11-22] MEDS: Heparin 5000 units/ml inj SUBQ SCH (09:16)
[2017-11-22 09:23] LABS: BASOPHILS % (AUTO) 1.1 % (0.0-2.0); EOSINOPHILS % (AUTO) 3.7 % (0.0-3.0); HEMATOCRIT 38.2 % (37.0-47.0); LYMPHOCYTES % (AUTO) 33.4 % (20.0-45.0); MEAN CORPUSCULAR VOLUME 93 FL (80-99); MONOCYTES % (AUTO) 13.4 % (1.0-10.0); NEUTROPHILS % (AUTO) 48.5 % (45.0-75.0); PLATELET COUNT 178 K/UL (150-450); WHITE BLOOD COUNT 5.2 K/UL (4.8-10.8)
[2017-11-22 09:43] LABS: ALANINE AMINOTRANSFERASE 123 U/L (12-78); ALBUMIN 2.6 G/DL (3.4-5.0); ALBUMIN/GLOBULIN RATIO 0.8 (1.0-2.7); ALKALINE PHOSPHATASE 173 U/L (46-116); ANION GAP 5 mmol/L (5-15); ASPARTATE AMINO TRANSFERASE 104 U/L (15-37); BILIRUBIN,TOTAL 0.5 MG/DL (0.2-1.0); BLOOD UREA NITROGEN 3 mg/dL (7-18); CALCIUM 8.3 MG/DL (8.5-10.1); CARBON DIOXIDE 34 MMOL/L (21-32); CHLORIDE 104 MMOL/L (98-107); CREATININE 0.6 MG/DL (0.55-1.30); SODIUM 143 MMOL/L (136-145)
[2017-11-22 09:47] LABS: POTASSIUM 2.5 MMOL/L (3.5-5.1)
[2017-11-22] MEDS ORDERED: Potassium Chloride 40 MEQ in Sodium Chloride 500ML 550 ML IVPB ONE (10:45)
[2017-11-22 11:38] VITALS: BP 136/71
--- NOTE | 2017-11-22 13:29 | GI Progress Note ---
Assessment/Plan Problems: (1) Abdominal pain ICD Codes: R10.9 - Unspecified abdominal pain SNOMED: 72501036 (2) Hyperbilirubinemia ICD Codes: E80.6 - Other disorders of bilirubin metabolism SNOMED: 16594349 (3) Choledocholithiasis ICD Codes: K80.50 - Calculus of bile duct without cholangitis or cholecystitis without obstruction SNOMED: 227218683 (4) Biliary obstruction ICD Codes: K83.1 - Obstruction of bile duct SNOMED: 311554836 (5) Severe malnutrition ICD Codes: E43 - Unspecified severe protein-calorie malnutrition SNOMED: 33965896 Status: stable Status Narrative Discussed with Dr. Sandy. Assessment/Plan 1. Choledocholithiasis. 2. Status post ERCP, extension of the sphincterotomy, and balloon assisted stone extraction. RECOMMENDATION: Pt to be discharged today. discussed POC with son @ bedside >> wishes patient to be discharged after KCl IV infusion, aware K is low. complete KCl IV infusion, stat labs IV abx transition to PO >> ID recs appreciated Rx Flagyl and Cefdinir Zofran prn KCl PO x 3 days Tylenol prn Ursodiol FLD, adv as tolerated compazine for nausea pain mgmt dc IVFs fu labs, repeat lipase outpatient follow up with us next week. Subjective Subjective nauseated unable to hold PO Objective Last 24 Hour Vital Signs Date Time Temp Pulse Resp B/P (MAP) Pulse Ox O2 Delivery O2 Flow Rate FiO2 11/22/17 11:38 98.1 67 19 136/71 94 11/22/17 08:00 97.1 66 20 143/69 94 11/22/17 04:34 Room Air 11/22/17 04:00 98.0 74 16 137/64 93 11/22/17 00:46 Room Air 11/22/17 00:00 97.0 61 16 142/69 98 11/21/17 23:51 97.0 11/21/17 20:16 Room Air 11/21/17 20:00 97.0 86 16 130/73 97 11/21/17 16:00 97.2 56 18 144/60 92 Room Air Intake and Output 11/21/17 11/22/17 19:00 07:00 Intake Total 1300 ml 1340 ml Balance 1300 ml 1340 ml Intake Oral 120 ml 240 ml IV Total 1180 ml 1100 ml # Voids 3 Laboratory Tests Test 11/22/17 07:20 White Blood Count 5.2 K/UL (4.8-10.8) Red Blood Count 4.10 M/UL (4.20-5.40) L Hemoglobin 13.0 G/DL (12.0-16.0) Hematocrit 38.2 % (37.0-47.0) Mean Corpuscular Volume 93 FL (80-99) Mean Corpuscular Hemoglobin 31.7 PG (27.0-31.0) H Mean Corpuscular Hemoglobin Concent 34.0 G/DL (32.0-36.0) Red Cell Distribution Width 12.0 % (11.6-14.8) Platelet Count 178 K/UL (150-450) Mean Platelet Volume 8.7 FL (6.5-10.1) Neutrophils (%) (Auto) 48.5 % (45.0-75.0) Lymphocytes (%) (Auto) 33.4 % (20.0-45.0) Monocytes (%) (Auto) 13.4 % (1.0-10.0) H Eosinophils (%) (Auto) 3.7 % (0.0-3.0) H Basophils (%) (Auto) 1.1 % (0.0-2.0) Sodium Level 143 MMOL/L (136-145) Potassium Level 2.5 MMOL/L (3.5-5.1) *L Chloride Level 104 MMOL/L (98-107) Carbon Dioxide Level 34 MMOL/L (21-32) H Anion Gap 5 mmol/L (5-15) Blood Urea Nitrogen 3 mg/dL (7-18) L Creatinine 0.6 MG/DL (0.55-1.30) Estimat Glomerular Filtration Rate mL/min (>60) Glucose Level 102 MG/DL (74-106) Calcium Level 8.3 MG/DL (8.5-10.1) L Total Bilirubin 0.5 MG/DL (0.2-1.0) Aspartate Amino Transf (AST/SGOT) 104 U/L (15-37) H Alanine Aminotransferase (ALT/SGPT) 123 U/L (12-78) H Alkaline Phosphatase 173 U/L (46-116) H Total Protein 5.8 G/DL (6.4-8.2) L Albumin 2.6 G/DL (3.4-5.0) L Globulin 3.2 g/dL Albumin/Globulin Ratio 0.8 (1.0-2.7) L Lipase 428 U/L (73-393) H Height (Feet): 5 Height (Inches): 0.00 Weight (Pounds): 100 General Appearance: WD/WN, no apparent distress, alert Cardiovascular: normal rate Respiratory/Chest: normal breath sounds, no respiratory distress Abdominal Exam: normal bowel sounds, non tender, soft Extremities: normal range of motion, non-tender Eusebia Jasso N.P. Nov 22, 2017 13:29
[2017-11-22] MEDS ORDERED: NORCO 5-325 TA1 EACH ORAL (13:39)
[2017-11-22] MEDS ORDERED: CEFDINIR300 MG PO (13:40)
[2017-11-22] MEDS ORDERED: URSODIOL250 MG PO (13:40)
[2017-11-22] MEDS ORDERED: METRONIDAZOLE500 MG ORAL (13:41)
[2017-11-22] MEDS ORDERED: ZOFRAN4 M1 SL (13:41)
[2017-11-22] MEDS ORDERED: K-TAB10 MEQ PO (13:42)
[2017-11-22] MEDS ORDERED: ACETAMINOP160 MG/51 ORAL (15:19)
[2017-11-22] MEDS ORDERED: TYLENOL325 MG ORAL (15:28)
[2017-11-22 16:00] VITALS: BP 129/78
[2017-11-22] MEDS: cefTRIAXone 1 GM in NS 55 ML IVPB SCH (16:30)
--- NOTE | 2017-11-22 16:34 | Infectious Diseases Prog Note ---
Assessment/Plan Assessment/Plan Abx: Ceftriaxone /- Flagyl 11/17- Assessment: Abd pain 2ry to choledocholithiasis and possible cholangitis -s/p ERCP 2 (Procedure findings report p) -MRI abd: Choledocholithiasis with innumerable stones within the CBD and a moderate intrahepatic and CBD dilatation up to 16 mm. Status post cholecystectomy.Parapelvic renal cysts. Breathing motion artifacts. Leukocytosis, resolved -afebrile Elevated LFTs, and Bili- 2ry to above; improving Cholestasis disease -s/p ERCP x4 2012 S/p cholecystectomy (~>6yrs ago) Plan: -Continue Ceftriaxone and Flagyl #6/7-10 in the setting of possible cholangitis ; ok to discharge on PO Cefdinir and Flagyl to finish course -Monitor CBC/BMP, temperatures Thank you for this consultation. Will continue to follow along with you. Discussed with RN and GI team. Subjective Allergies: Coded Allergies: No Known Allergies (Verified Allergy, Mild, 02/27/08) Subjective afebrile no leukocytosis resolved LFTs improving for discharge Objective Vital Signs Last 24 Hour Vital Signs Date Time Temp Pulse Resp B/P (MAP) Pulse Ox O2 Delivery O2 Flow Rate FiO2 11/22/17 16:00 98.6 70 19 129/78 94 11/22/17 11:38 98.1 67 19 136/71 94 11/22/17 08:00 97.1 66 20 143/69 94 11/22/17 04:34 Room Air 11/22/17 04:00 98.0 74 16 137/64 93 11/22/17 00:46 Room Air 11/22/17 00:00 97.0 61 16 142/69 98 11/21/17 23:51 97.0 11/21/17 20:16 Room Air 11/21/17 20:00 97.0 86 16 130/73 97 Height (Feet): 5 Height (Inches): 0.00 Weight (Pounds): 100 Objective General Appearance: well appearing, no apparent distress, alert Head: normocephalic EENT: PERRL/EOMI, normal ENT inspection Neck: supple Respiratory: normal breath sounds, no respiratory distress Cardiovascular: normal rate Gastrointestinal: normal inspection,RUQ TTP Genitourinary: no CVA tenderness Musculoskeletal: normal inspection, back normal Skin: normal inspection, normal color, no rash, warm/dry, palpation normal, well hydrated Laboratory Tests Test 11/22/17 07:20 White Blood Count 5.2 K/UL (4.8-10.8) Red Blood Count 4.10 M/UL (4.20-5.40) L Hemoglobin 13.0 G/DL (12.0-16.0) Hematocrit 38.2 % (37.0-47.0) Mean Corpuscular Volume 93 FL (80-99) Mean Corpuscular Hemoglobin 31.7 PG (27.0-31.0) H Mean Corpuscular Hemoglobin Concent 34.0 G/DL (32.0-36.0) Red Cell Distribution Width 12.0 % (11.6-14.8) Platelet Count 178 K/UL (150-450) Mean Platelet Volume 8.7 FL (6.5-10.1) Neutrophils (%) (Auto) 48.5 % (45.0-75.0) Lymphocytes (%) (Auto) 33.4 % (20.0-45.0) Monocytes (%) (Auto) 13.4 % (1.0-10.0) H Eosinophils (%) (Auto) 3.7 % (0.0-3.0) H Basophils (%) (Auto) 1.1 % (0.0-2.0) Sodium Level 143 MMOL/L (136-145) Potassium Level 2.5 MMOL/L (3.5-5.1) *L Chloride Level 104 MMOL/L (98-107) Carbon Dioxide Level 34 MMOL/L (21-32) H Anion Gap 5 mmol/L (5-15) Blood Urea Nitrogen 3 mg/dL (7-18) L Creatinine 0.6 MG/DL (0.55-1.30) Estimat Glomerular Filtration Rate mL/min (>60) Glucose Level 102 MG/DL (74-106) Calcium Level 8.3 MG/DL (8.5-10.1) L Total Bilirubin 0.5 MG/DL (0.2-1.0) Aspartate Amino Transf (AST/SGOT) 104 U/L (15-37) H Alanine Aminotransferase (ALT/SGPT) 123 U/L (12-78) H Alkaline Phosphatase 173 U/L (46-116) H Total Protein 5.8 G/DL (6.4-8.2) L Albumin 2.6 G/DL (3.4-5.0) L Globulin 3.2 g/dL Albumin/Globulin Ratio 0.8 (1.0-2.7) L Lipase 428 U/L (73-393) H Current Medications Medications (Trade) Dose Ordered Sig/Gordon Route PRN Reason Start Time Stop Time Status Last Admin Dose Admin Acetaminophen (Tylenol) 650 mg Q4H PRN ORAL fever 11/17/17 14:00 12/17/17 13:59 Acetaminophen/ Hydrocodone Bitart ([place] 5/325) 1 tab Q4H PRN ORAL Moderate Pain (Pain Scale 4-6) 11/21/17 13:45 11/28/17 13:44 11/21/17 22:52 Al Hydroxide/Mg Hydroxide (Mylanta II) 30 ml Q6H PRN ORAL dyspepsia 11/17/17 14:00 12/17/17 13:59 Ceftriaxone Sodium 1 gm/ Sodium Chloride 55 ml @ 110 mls/hr Q24H IVPB 11/17/17 16:30 11/24/17 16:29 11/21/17 17:05 Dextrose (Dextrose 50%) STAT PRN IV Hypoglycemia 11/17/17 14:00 12/17/17 13:59 Diphenhydramine HCl (Benadryl) 25 mg Q6H PRN ORAL Itching/Pruritis 11/17/17 14:00 12/17/17 13:59 Heparin Sodium (Porcine) (Heparin 5000 units/ml) 5,000 units EVERY 12 HOURS SUBQ 11/17/17 21:00 12/17/17 20:59 11/22/17 09:16 Metronidazole 100 ml @ 100 mls/hr Q8HR IVPB 11/17/17 22:00 11/24/17 21:59 11/22/17 06:42 Nitroglycerin (Ntg) 0.4 mg Q5M X 3 DOSES PRN SL Prn Chest Pain 11/17/17 14:00 12/17/17 13:59 Ondansetron HCl (Zofran) 4 mg Q4H PRN IVP Nausea & Vomiting 11/17/17 19:15 12/17/17 19:14 11/22/17 10:33 Pantoprazole (Protonix) 40 mg DAILY IVP 11/18/17 09:00 12/18/17 08:59 11/22/17 09:14 Polyethylene Glycol (Miralax) 17 gm HSPRN PRN ORAL Constipation 11/17/17 14:00 12/17/17 13:59 Prochlorperazine (Compazine) 10 mg Q6H PRN IVP Nausea & Vomiting 11/21/17 13:45 12/21/17 13:44 11/22/17 02:09 Temazepam (Restoril) 15 mg HSPRN PRN ORAL Insomnia 11/17/17 14:00 11/24/17 13:59 Ursodiol (Actigall) 300 mg TWICE A DAY ORAL 11/21/17 18:00 12/21/17 17:59 11/22/17 09:14 Iliana Mijares M.D. Nov 22, 2017 16:34
[2017-11-22] MEDS ORDERED: D5 1/2NS 1000ml IV ONE (16:44)
[2017-11-22] MEDS ORDERED: Tubing IV Secondary IV ONE (16:44)
[2017-11-22 17:01] LABS: BASOPHILS % (AUTO) 1.4 % (0.0-2.0); EOSINOPHILS % (AUTO) 4.4 % (0.0-3.0); HEMATOCRIT 36.7 % (37.0-47.0); HEMOGLOBIN 12.6 G/DL (12.0-16.0); LYMPHOCYTES % (AUTO) 26.1 % (20.0-45.0); MEAN CORPUSCULAR VOLUME 93 FL (80-99); MONOCYTES % (AUTO) 10.3 % (1.0-10.0); NEUTROPHILS % (AUTO) 57.9 % (45.0-75.0); PLATELET COUNT 182 K/UL (150-450); RED BLOOD COUNT 3.95 M/UL (4.20-5.40); RED CELL DISTRIBUTION WIDTH 12.2 % (11.6-14.8); WHITE BLOOD COUNT 4.9 K/UL (4.8-10.8)
[2017-11-22 17:07] LABS: ANION GAP 7 mmol/L (5-15); BLOOD UREA NITROGEN 4 mg/dL (7-18); CALCIUM 8.3 MG/DL (8.5-10.1); CARBON DIOXIDE 30 MMOL/L (21-32); CHLORIDE 105 MMOL/L (98-107); CREATININE 0.5 MG/DL (0.55-1.30); SODIUM 142 MMOL/L (136-145)
[2017-11-22 17:11] LABS: PHOSPHORUS 1.6 MG/DL (2.5-4.9)
--- NOTE | 2017-11-23 15:10 | Discharge Summary ---
Discharge Summary Hospital Course Date of Admission Nov 17, 2017 at 13:01 Date of Discharge Nov 22, 2017 at 16:45 Admitting Diagnosis severe abdominal pain HPI Meseret Valverde is a 72 year old female who was admitted on Nov 17, 2017 at 13:01 for Severe Abdominal Pain Hospital Course [id number] Discharge Discharge Disposition Patient was discharged to Home (01) Discharge Diagnoses: Jessi Cordoba NP Nov 23, 2017 15:09
--- NOTE | 2017-11-24 05:30 | Discharge Summary 2 SIG ---
DATE OF ADMISSION: 11/17/2017 DATE OF DISCHARGE: 11/22/2017 RECREATION PROGRAMMER: Iliana Mijares M.D. BRIEF HOSPITAL COURSE: The patient is a 72-year-old female, who came from home, presented with complaints of severe epigastric pain with radiation to the back. The patient had cholecystectomy over 6 years ago, and pain started two days prior to admission with increased nausea and vomiting. Denies any diarrhea. Denied any fever. Blood work showed elevated bilirubin and LFTs. AST was 610. ALT 397. Direct bilirubin 1.7, total bilirubin 2.7. Lipase was 81. She underwent MRCP with findings of choledocholithiasis with innumerable stones within the CBD. There was moderate intrahepatic and CBD dilatation up to 16 mm. She was followed by Infectious Disease specialist and was given ceftriaxone and Flagyl in the setting of possible cholangitis. On 11/20/2017, she underwent ERCP with sphincterotomy and balloon-assisted stone extraction. Post ERCP, diet was slowly advanced as tolerated. Compazine was added for nausea. She was started on ursodiol. She was given potassium supplements. LFTs and bilirubin downtrended. She was eventually discharged home to continue p.o. antibiotics and to follow up in a week. FINAL DIAGNOSES: 1. Biliary obstruction with choledocholithiasis. 2. Hyperbilirubinemia. 3. Possible cholangitis. 4. Elevated liver transaminases. 5. Leukocytosis. 6. Cholestasis disease. 7. Status post ERCP. 8. History of cholecystectomy. DISPOSITION: The patient was discharged home. DISCHARGE MEDICATIONS: Continue with Flagyl and cefdinir for three more days. DISCHARGE INSTRUCTIONS: Follow up with GI in a week. Sonny Sandy M.D. I have been assigned to dictate discharge summary on this account and I was not involved in the patient's management. Jessi Cordoba N.P. DR: Gigi JOB#: [id number] CC: ESTER
--- NOTE | 2017-11-28 16:01 | History and Physical ---
History of Present Illness General Date patient seen: Nov 17, 2017 Reason for Hospitalization: Abdominal Pain Present Illness HPI 72 year old female with hx of cholecystectomy presented to ER with complaints of severe epigastric abdominal pain with radiation towards the back. she has had repeat episodes of abdominal pain requiring ERCP This pain started 2 days ago increased nausea vomiting. Denies any diarrhea. pain sharp. Allergies: Coded Allergies: No Known Allergies (Verified Allergy, Mild, 02/27/08) Medication History Scheduled Cefdinir (Cefdinir), 300 MG PO BID, (Reported) Hydrocodone Bit/Acetaminophen 5-325* ([place] 5-325*), 1 TAB ORAL Q4HR, (Reported) Metronidazole* (Flagyl*), 500 MG ORAL THREE TIMES A DAY, (Reported) Potassium Chloride (K-Tab), 40 MEQ PO DAILY, (Reported) Ursodiol (Ursodiol), 300 MG PO BID, (Reported) Scheduled PRN Acetaminophen (Tylenol), 650 MG ORAL Q4HR PRN for Prn Pain/Headache/Temp > 101, (Reported) Ondansetron (Zofran), 4 MG SL Q6H PRN for Nausea & Vomiting, (Reported) Discontinued Medications Acetaminophen* (Acetaminophen*), 650 MG ORAL Q4HR PRN for For Pain, (Reported) Discontinued Reason: Prescription changed Hydrocodone Bit/Acetaminophen 5-325* ([place] 5-325*), 1 TAB ORAL Q6H PRN for For Pain, (Reported) Discontinued Reason: Medication dose changed Patient History Healthcare decision maker Resuscitation status Full Code Advanced Directive on File Past Medical/Surgical History Past Medical/Surgical History: (1) Biliary obstruction (2) Choledocholithiasis Review of Systems Gastrointestinal: Reports: nausea, vomiting All Other Systems: negative except mentioned in HPI Physical Exam General Appearance: no apparent distress, alert Lines, tubes and drains: peripheral HEENT: normocephalic, atraumatic Neck: non-tender, normal alignment Respiratory/Chest: chest wall non-tender, lungs clear Breasts: no masses Cardiovascular/Chest: normal peripheral pulses, normal rate Abdomen: normal bowel sounds Genitourinary/Rectal: normal rectal exam Extremities: normal range of motion Skin Exam: normal pigmentation 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 TATYANA BROWNLEE Nov 28, 2017 16:01
== END 2017-11-22 16:45 | disposition home or self-care (01) | DRG 444 ==
LOC: EMR 11:55 → 4W 13:01 → EDBEDREQ 13:52
PROC: BF10YZZ Fluoroscopy of Bile Ducts using Other Contrast (ICD-10-PCS; principal; 2017-11-20 09:35)
PROC: 0F798DZ Dilation of Common Bile Duct with Intraluminal Device, Via Natural or Artificial Opening Endoscopic (ICD-10-PCS; principal; 2017-11-20 09:35)
DX: K80.31 Calculus of bile duct with cholangitis, unspecified, with obstruction (principal); E43 Unspecified severe protein-calorie malnutrition; Z68.1 Body mass index [BMI] 19.9 or less, adult; E80.6 Other disorders of bilirubin metabolism; Z90.49 Acquired absence of other specified parts of digestive tract
CPT/HCPCS: 36415; 74181; 74328; 76000; 80048; 80053; 82150; 82248; 83690; 83735; 84100; 85007; 85025; 85610; 85730; 94003; 94150; 99285; J2250; J2405; J8499